=== PATIENT | male | born 1955 | race Caucasian/White ===

== ENCOUNTER 2017-06-01 13:37 | Inpatient (IN) | payer OTHER ==
[~2017-06-01] VITALS: Ht 172.7 cm; Wt 120.7 kg
[~2017-06-01 13:37] MED LIST: CHOL2000 PO; CNC30T PO; LEVO100T87 PO; PRAV20TA PO; SEVE800T10 PO
[2017-06-01 14:23] LABS: ADD SCAN DIFF NO
[2017-06-01 14:26] LABS: BASOPHILS % 0.2 % (0.0-2.0); EOSINOPHILS # 0.2 10^3/ul (0.0-0.5); EOSINOPHILS % 1.8 % (0.0-7.0); HEMATOCRIT 32.3 % (42.0-52.0); HEMOGLOBIN 10.5 g/dl (14.0-18.0); LYMPHOCYTES # 1.7 10^3/ul (0.8-2.9); LYMPHOCYTES % 17.5 % (15.0-51.0); MEAN CORPUSCULAR HEMOGLOBIN 33.2 pg (29.0-33.0); MEAN CORPUSCULAR HGB CONC 32.5 g/dl (32.0-37.0); MEAN CORPUSCULAR VOLUME 102.2 fl (82.0-101.0); MEAN PLATELET VOLUME 10.2 fl (7.4-10.4); MONOCYTE # 0.5 10^3/ul (0.3-0.9); MONOCYTES % 5.1 % (0.0-11.0); NEUTROPHIL # 7.3 10^3/ul (1.6-7.5); NEUTROPHILS % 74.5 % (39.0-77.0); PLATELET COUNT 311 10^3/UL (140-415); RED BLOOD COUNT 3.16 10^6/ul (4.70-6.10); RED CELL DISTRIBUTION WIDTH 12.9 % (11.5-14.5); WHITE BLOOD COUNT 9.8 10^3/ul (4.8-10.8)
--- NOTE | 2017-06-01 14:26 | RADRPT ---
PROCEDURE: XR Chest. CLINICAL INDICATION: Chest pain TECHNIQUE: Single portable view of the chest was obtained COMPARISON: 09/03/2015 FINDINGS: The heart is enlarged. The lungs are clear. There is no pleural effusion or pneumothorax. RPTAT: AA IMPRESSION: Mild Cardiomegaly. .Augustus Hazel MD, MD Date Time Electronically viewed and signed by .Augustus Hazel MD, on 06/01/2017 14:26 .S/
[2017-06-01 14:42] LABS: INR 1.07; PROTIME 13.9 Sec (12.2-14.2); PT RATIO 1.1
[2017-06-01 14:43] LABS: PARTIAL THROMBOPLASTIN TIME 31.1 Sec (25.0-35.0)
[2017-06-01 14:49] LABS: CALCIUM 9.2 mg/dl (8.4-10.2); CREATININE 11.81 mg/dl (0.61-1.24); POTASSIUM 4.4 mmol/L (3.5-5.1)
[2017-06-01] MEDS ORDERED: FERR210T PO (14:54)
[2017-06-01] MEDS ORDERED: FENO200 PO (14:55)
[2017-06-01] MEDS ORDERED: CINA90TA PO (14:56)
[2017-06-01] MEDS ORDERED: LEVO137T26 PO (14:57)
--- NOTE | 2017-06-01 15:00 | RADRPT ---
PROCEDURE: US left upper extremity AV fistula/graft CLINICAL INDICATION: End-stage renal disease, poorly functioning AV fistula, pain TECHNIQUE: Multiple sonographic images of the left upper extremity arteries, veins and hemodialysi s access was obtained utilizing grayscale, color-flow, compressive sonography and doppler imaging. The images were reviewed on a PACS workstation. COMPARISON: None. FINDINGS: There is a partially thrombosed left AV fistula. Velocities, and measurements were obtained: Upper outflow vein: Thrombosed Mid outflow vein: 20 cm/s Lower outflow vein: 134 cm/s Arterial anastomosis: 71 cm/s Inflow artery : 50 cm/s IMPRESSION: Thrombosis of the left AV fistula in its mid and distal aspects. RPTAT: AA .Augustus Hazel MD, Date Time Electronically viewed and signed by .Augustus Hazel MD, on 06/01/2017 14:59 .S/
--- NOTE | 2017-06-01 15:25 | ERA ---
ER Documentation Chief Complaint Date/Time DATE: 06/01/17 TIME: 15:14 Chief Complaint dialysis shunt not working, sent from dialysis center, last dialysis HPI This is a 60 this is a 61-year-old male who presents to the emergency room for evaluation of left arm pain. The patient does have a dialysis shunt in the left upper extremity. It is AV shunt and he states that he has not been working since Wednesday, 29 May. The patient states that he does get dialysis Wednesday, , Wednesday and he went to dialysis today and they were unable to access the shunt. The patient came to the ER for evaluation. He states that he did have a shunt placed by Dr. leung ROS All systems reviewed and are negative except as per history of present illness. Medications Home Meds Reported Medications Levothyroxine Sodium* (Levoxyl*) 137 Mcg Tablet, 137 MCG PO BEFORE BREAKFAST, # 30 TAB 06/01/17 Cinacalcet* (Sensipar*) 90 Mg Tablet, 90 MG PO DAILY, TAB 06/01/17 Fenofibrate* (Fenofibrate*) 200 Mg Cap, 200 MG PO DAILY, CAP 06/01/17 Ferric Citrate (Auryxia) 210 Mg Tablet, 420 MG PO TID, TAB 06/01/17 Cholecalciferol* (Vitamin D3*) 2,000 Unit Cap, 2000 UNIT PO DAILY, CAP 10/23/15 Discontinued Reported Medications Levothyroxine Sodium* (Levothyroxine Sodium*) 100 Mcg Tablet, 100 MCG PO AC BREAKFAST, TAB 10/23/15 Pravastatin Sodium (Pravachol) 20 Mg Tablet, 20 MG PO DAILY 09/17/15 Cinacalcet* (Sensipar*) 30 Mg Tab, 30 MG PO DAILY, TAB 02/26/15 Sevelamer Hcl* (Renagel*) 800 Mg Tablet, 2400 MG PO TID, TAB 12/24/14 Allergies Allergies: Coded Allergies: Penicillins (Verified Allergy, Unknown, THROAT SWELLING, 06/01/17) PMhx/Soc History of Surgery: Yes (LEFT AV FISTULA) Anesthesia Reaction: No Hx Neurological Disorder: No Hx Respiratory Disorders: No Hx Cardiac Disorders: Yes (HIGH CHOLESTEROL) Hx Psychiatric Problems: No Hx Miscellaneous Medical Probl: No Hx Alcohol Use: No Hx Substance Use: No Hx Tobacco Use: No Smoking Status: Never smoker Physical Exam Vitals Vital Signs Date Time Temp Pulse Resp B/P Pulse Ox O2 Delivery O2 Flow Rate FiO2 06/01/17 13:38 98.5 90 20 187/92 98 Physical Exam INITIAL VITAL SIGNS: Reviewed by me GENERAL: The patient is well developed and appropriate for usual state of health in no apparent distress HEENT: Pupils equal, round, and reactive to light. EOMI. There is no scleral icterus. NECK: C-spine is soft and supple, there is no meningismus. There is no cervical lymphadenopathy. LUNGS: Clear to auscultation bilaterally. There are no rales, wheezes or rhonchi. HEART: Regular rate and rhythm, no murmurs, clicks, rubs or gallops. ABDOMEN: Soft, non-tender, non-distended. There are bowel sounds in all four quadrants. No rebound or guarding. EXTREMITIES: There is no peripheral cyanosis or edema. No focal swelling or erythema. NEUROLOGICAL: The patient moves all four extremities with 5/5 strength. Cranial nerves II - XII are intact. Normal gait. Alert and oriented SKIN: Left upper extremity AV shunt erythematous, no palpable 3 HEME/LYMPHATIC: There is no evidence of excessive bruising or lymphedema. PSYCHIATRIC: The patient does not appear anxious or depressed. Result Diagram: 06/01/17 1415 06/01/17 1415 Results 24 hrs Laboratory Tests Test 06/01/17 14:15 White Blood Count 9.810^3/ul Red Blood Count 3.1610^6/ul Hemoglobin 10.5g/dl Hematocrit 32.3% Mean Corpuscular Volume 102.2fl Mean Corpuscular Hemoglobin 33.2pg Mean Corpuscular Hemoglobin Concent 32.5g/dl Red Cell Distribution Width 12.9% Platelet Count 93819^3/UL Mean Platelet Volume 10.2fl Neutrophils % 74.5% Lymphocytes % 17.5% Monocytes % 5.1% Eosinophils % 1.8% Basophils % 0.2% Nucleated Red Blood Cells % 0.0/100WBC Neutrophils # 7.310^3/ul Lymphocytes # 1.710^3/ul Monocytes # 0.510^3/ul Eosinophils # 0.210^3/ul Basophils # 0.010^3/ul Nucleated Red Blood Cells # 0.010^3/ul Prothrombin Time 13.9Sec Prothrombin Time Ratio 1.1 INR International Normalized Ratio 1.07 Activated Partial Thromboplast Time 31.1Sec Sodium Level 133mmol/L Potassium Level 4.4mmol/L Chloride Level 102mmol/L Carbon Dioxide Level 17mmol/L Anion Gap 18 Blood Urea Nitrogen 85mg/dl Creatinine 11.81mg/dl Glucose Level 102mg/dl Calcium Level 9.2mg/dl Procedures/MDM Ultrasound left upper extremity: Thrombosis of the left AV fistula in its mid and distal aspects. Chest X-ray 1V Interpreted by me: Soft Tissue: No acute abnormalities Bones: No acute abnormalities Mediastinum/Cardiac Silhouette/Lungs: [No acute abnormalities] EKG: Rate/Rhythm: [Normal Sinus Rhythm] QRS, ST, T-waves: [No changes consistent w/ acute ischemia] Impression: [No evidence of ischemia or arrhythmia] This 61-year-old male presents to the ER for evaluation of left arm pain. This patient did have an erythematous left upper extremity AV shunt. The patient underwent an ultrasound which confirmed thrombosis of the left AV shunt. I did call this patient's vascular surgeon, Dr. leung who agrees to evaluate this patient. The patient will be admitted under the care of Dr. Bard nolasco at this time. Departure Diagnosis: Primary Impression: AV shunt thrombosis Additional Impressions: Complication of vascular access for dialysis Macrocytic anemia End stage renal disease Condition: Stable CANDIDA KRAMER DO Jun 01, 2017 15:24
[2017-06-01] MEDS ORDERED: ACETAMINOPHEN 325 MG TAB PO PRN ×2 (15:30→17:00)
[2017-06-01] MEDS ORDERED: ONDANSETRON 4 MG INJ IV PRN (15:30)
--- NOTE | 2017-06-01 16:52 | HP ---
Date/Time of Note Date/Time of Note DATE: 06/01/17 TIME: 16:36 Assessment/Plan VTE Prophylaxis VTE Prophylaxis Intervention: SCD's Assessment/Plan Assessment/Plan - AV shunt thrombosis, Dr. 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 Possible of a vascular intervention tonight. Keep patient n.p.o. - Hemodialysis dependent end-stage renal disease, Dr. Gonzalez is following in nephrology consultation. - Anemia of chronic disease - Hypothyroidism, continue levothyroxine - Dyslipidemia, continue fenofibrate. Further recommendations based on clinical course. Plan of care discussed with Dr. Maldonado. HPI/ROS Admit Date/Time Admit Date/Time Hx of Present Illness The patient is 61-year-old gentleman with history of end-stage renal disease on hemodialysis 3 days a week. Patient has been on hemodialysis for last 3 years. His dialysis schedule is Wednesday and Wednesday. He presented to hemodialysis center today and was unable to be dialyzed due to malfunction of left upper extremity atrial venous shunt. Patient was referred to emergency room by his vascular surgeon Dr. Patterson. Patient underwent ultrasound of left upper extremity which revealed thrombosis of left AV shunt. Patient complains of mild stomach upset which he associates with starting new medication Auryxia. Patient denies any fever chills denies any chest pain denies any shortness of breath denies any nausea vomiting diarrhea. Patient will be admitted for further evaluation and management. ROS Point review of system is negative unless mentioned in HPI PMH/Family/Social Past Medical History Staghorn calculi, hypothyroidism, dyslipidemia, obesity. Medical History: high cholesterol, hypothyroid Past Surgical History Status post left upper extremity atrial venous fistula creation with multiple vascular interventions Family History Significant Family History: no pertinent family hx Social History Alcohol Use: none Smoking Status: Never smoker Drug Use: marijuana Exam/Review of Systems Vital Signs Vitals Vital Signs Date Time Temp Pulse Resp B/P Pulse Ox O2 Delivery O2 Flow Rate FiO2 06/01/17 16:26 73 20 166/90 99 Room Air 06/01/17 13:38 98.5 Exam Constitutional: alert, oriented Head: atraumatic, normocephalic Eyes: nl conjunctiva Neck: non-tender, supple Respiratory: normal air movement Cardiovascular: nl pulses Gastrointestinal: non-tender, soft Extremities: edema, normal pulses Neurological: nl mental status Skin: nl turgor Labs Result Diagram: 06/01/17 1415 06/01/17 1415 ADRIANA SOLIS Jun 01, 2017 16:47
[2017-06-01] MEDS ORDERED: morphine 2 MG INJ IV PRN (17:00)
[2017-06-01] MEDS ORDERED: IODIXANOL LOCM 50 ML BTL ONE (17:23)
[2017-06-01] MEDS ORDERED: IODIXANOL LOCM 100 ML BTL ONE (17:23)
[2017-06-01] MEDS ORDERED: SOD CHLORIDE 0.9% 100 ML ONE (17:23)
[2017-06-01] MEDS ORDERED: VANCOMYCIN 1.25 GM in SOD CHLORIDE 0.9% 250 ML IVPB ONE (17:30)
[2017-06-01] MEDS: ONDANSETRON 4 MG INJ IV PRN (18:28)
[2017-06-01] MEDS ORDERED: VANCOMYCIN 1 GM (PMX) 250 ML IVPB SCH ×2 (19:00→20:30)
--- NOTE | 2017-06-01 19:56 | RADRPT ---
PROCEDURE: US bilateral upper extremity venous CLINICAL INDICATION: End-stage renal disease, left brachiocephalic fistula in used - thrombosed - seen in earlier exam on 06/01/2017 TECHNIQUE: Multiple sonographic images of the bilateral upper upper extremity deep and superficial venous system was obtained utilizing grayscale, compressive sonography. Measurements were performed . The images were reviewed on a PACS workstation. COMPARISON: 06/01/2017 FINDINGS: RIGHT Right subclavian, axillary, brachial, basilic and cephalic veins are compressible. Basilic vein: Proximal: Size: 7.9 mm Mid aspect: Size: 3.4 mm Antecubital fossa region: Size: 2.4 mm Proximal forearm: Size: 1.7 mm Mid forearm: Size: 1.6 mm Wrist: Size: 1.1 mm Cephalic vein in the upper arm: Proximal: Size: 5.2 mm Mid aspect: Size: 4.8 mm Antecubital fossa region: Size: 5.3 mm Cephalic vein in the forearm: Proximal: Size: 4.1 mm Mid aspect: Size: 2.5 mm Wrist: Size: 0.9 mm LEFT Left subclavian, axillary, brachial, basilic and cephalic veins are compressible. Basilic vein: Proximal: Size: 6.9 mm Mid aspect: Size: 4.4 mm Antecubital fossa region: Size: 4.1 mm Proximal forearm: Size: 1.7 mm Mid forearm: Size: 0.9 mm Wrist: Size: 0.9 mm IMPRESSION: Vein mapping as described. RPTAT: HJES .Deep Spencer MD, Date Time Electronically viewed and signed by .Deep Spencer MD, on 06/01/2017 19:56 .S/
--- NOTE | 2017-06-01 19:57 | RADRPT ---
PROCEDURE: CTA left upper extremity CLINICAL INDICATION: Left upper extremity pain. Thrombosed dialysis graft. TECHNIQUE: 3.0 mm axial images were obtained through the left upper extremity after the IV adminis tration of 125 cc Visipaque 320 IV contrast. 3-D, coronal and sagittal reconstructions were obtaine d. DLP = 702.3 mGy-cm. CTDiVol = 3.5, 5.3, 42.3, 8.5 mGy. One or more of the following post reduction techniques were used: - Automated exposure control. - Adjustment of the mA and/or Kv according to patient's size. - Use of iterative reconstruction technique COMPARISON: Ultrasound June 01, 2017 FINDINGS: CTA left upper extremity: The visualized subclavian artery is widely patent and normal appearing. The left axillary artery de monstrates minimal calcified atherosclerosis without stenosis. The brachial artery is widely patent . A brachial-cephalic dialysis fistula emanates from the distal brachial artery at the level of the an tecubital fossa. A large amount of focal, nonocclusive thrombus is identified in the proximal aspec t of the fistula, just distal to the arterial anastomosis. The midportion of the fistula is aneurys mal, but patent. The cephalic outflow vein occludes just distal to the aneurysm. The remainder of t he cephalic vein is thrombosed in its entirety. A collateral venous outflow vein emanates from the fistula just before the occlusion and drains into the forearm, where it feeds multiple additional co llateral veins. A completely thrombosed forearm loop graft emanates from the distal brachial artery. The venous anas tomosis of the graft is to the basilic vein at the level of the antecubital fossa. Basilic outflow vein appears patent throughout the entirety of the left upper arm. However scattered nonocclusive, filling defects may reflect scattered nonocclusive thrombus in the basilic outflow vein. The axilla ry and subclavian veins are grossly unremarkable. Patent bifurcation of the brachial artery just below the antecubital fossa is identified. Patent co mmon trunk of the interosseous and ulnar arteries is identified. Patent common trunk bifurcation is observed. Minimal scattered calcified atherosclerosis is identified in the radial artery. The radial artery a ppears widely patent through the wrist. Interosseous artery is widely patent and normal appearing into the distal forearm. Scattered mild calcified atherosclerosis is identified throughout the ulnar artery. The ulnar arter y appears patent and without significant lesion through the wrist. CT left upper extremity: The osseous structures of the left upper extremity appear intact. No destructive bony lesions are o bserved. Skin thickening and mild fat stranding is identified in the soft tissues of the distal upp er arm and surrounding the elbow. IMPRESSION: Thrombosed brachial-basilic loop graft in the forearm. Thrombosed left upper arm brachial-cephalic dialysis fistula. Minimal calcified atherosclerosis scattered in the arterial vasculature of the left upper extremity. Patent radial and ulnar arteries through the wrist. Nonocclusive filling defects in the basilic vein in the left upper arm that may reflect scattered no nocclusive thrombus. Mild skin thickening and subcutaneous edema surrounding the distal upper arm and elbow. RPTAT: AA .Mason Caldwell MD, Date Time Electronically viewed and signed by .Mason Caldwell MD, on 06/01/2017 19:57 .P/
[2017-06-01 20:29] VITALS: BP 145/74; RESP 20
[2017-06-01 21:33] VITALS: Ht 172.7 cm; Wt 120.7 kg
[2017-06-02] VITALS (7 sets, daily range): BP systolic 141–160; BP diastolic 75–87; PULSE 75–86; RESP 16–20
[2017-06-02] MEDS: LEVOTHYROXINE 137 MCG TAB PO SCH (06:10)
[2017-06-02] MEDS: ONDANSETRON 4 MG INJ IV PRN (06:31)
--- NOTE | 2017-06-02 08:46 | OPR ---
Date/Time of Note Date/Time of Note DATE: 06/02/17 TIME: 08:45 Operative Report Free Text/Dictation DATE OF OPERATION: 06/02/2017 SURGEON: Joshua oTrres MD PREOPERATIVE DIAGNOSIS: ESRD POSTOPERATIVE DIAGNOSIS: same ANESTHESIA: Local BLOOD LOSS: minimal COMPLICATIONS: None. ACCESS: Right common femoral vein INDICATIONS: This is a 61 year-old male with ESRD requiring dialysis. Patient and family have been informed of the alternatives, risks, and benefits. Risks including but not limited to bleeding, thrombosis, embolization, myocardial infarction, , device malfunction, infection, pneumothorax, nephrotoxicity and patient has agreed to proceed. PROCEDURE: 1. Ultrasound guided access of right common femoral vein 2. Right common femoral vein non-tunneled hemodialysis catheter placement DESCRIPTION: The patient was in supine position in his bed. Bed was placed in slight Trendelenburg position and the groin was prepped and draped with sterile technique. The central catheter was flushed with heparin to ensure function of each port. Landmarks were identified and the skin entry site was chosen using ultrasound guidance. The skin And subcutaneous tissue were anesthetized with 1% lidocaine. The vein was then located with a needle with a 10 mL syringe using ultrasound guidance. The needle was then directed towards the vein and was entered. The needle position was secured and syringe was removed. The hub was occluded to prevent venous air embolus. The guidewire was passed easily and the needle was removed while the wire was held in place. A small incision was then made at the point of the wire entry. The dilator was placed over the wire and the tract gently dilated. The catheter was fed over the wire, ensuring the wire exited from the port before advancing the catheter. The catheter was inserted to the desired depth and the wire removed. Each port was aspirated to ensure adequate blood flow and then flushed with heparinized saline solution. The catheter was secured in place with a 2-0 nylon suture and a sterile dressing was applied. The patient tolerated the procedure well and was in stable condition. All instrument, sponge and needle counts were correct 2. JOSHUA TORRES MD Jun 02, 2017 08:46
[2017-06-02] MEDS ORDERED: SOD CHLORIDE 0.9% 500 ML ONE ×2 (08:50→17:25)
[2017-06-02] MEDS ORDERED: HEPARIN 1000 UNITS/ML 10 ML INJ ONE ×2 (08:50→17:25)
--- NOTE | 2017-06-02 08:54 | CONS ---
DATE OF ADMISSION: 06/01/2017 DATE OF CONSULTATION: HISTORY OF PRESENT ILLNESS: The patient is a 61-year-old gentleman with history of end-stage renal disease, who presented to [facility] with left upper extremity swelling, redness, discomfort, and clotted fistula. The patient mentioned that over the past few days had identified the patient having redness and swelling, and today when he went for his dialysis session, it was identified that the patient's fistula was not able to be cannulated and seemed to be thrombosed. The patient has been on dialysis over the past 3 years and has had previous left upper extremity loop of AV graft, which is nonfunctional. Further, the patient mentioned that he did have some chills, however, no fever was reported. Also, the patient has been noncompliant with his past surgery surveillance for his fistula, and we have not seen him in the office for some time now. The patient mentioned that he felt that his fistula was doing okay and no need to follow up. At the moment he denies shortness of breath, chest pain, nausea, vomiting, fever, or chills. Denies upper extremity claudication or rest pain. PAST MEDICAL HISTORY: Entails hypothyroidism, dyslipidemia, obesity, anemia of chronic disease, hypercholesterolemia, staghorn calculi, end-stage renal disease on dialysis Wednesday, , Wednesday. PAST SURGICAL HISTORY: Multiple left upper extremity AV fistula creations, previous Perm catheter placement. FAMILY HISTORY: Positive for hypertension and diabetes. SOCIAL HISTORY: Previous smoker, does use marijuana. Denies current illicit drug use or alcohol abuse. PHYSICAL EXAMINATION: GENERAL: Alert and oriented times 3, no apparent distress. HEENT: Normocephalic, atraumatic. PERRLA. EOMI. Mucosa moist. NECK: Supple. No carotid bruit. LUNGS: Clear to auscultation bilaterally. No crackles. HEART: S1, S2 present. No murmurs. ABDOMEN: Soft, nontender, nondistended. Bowel sounds positive. Truncal obesity. EXTREMITIES: Lower extremity palpable femoral pulse, nonpalpable pedal pulse. Motor and sensory intact. Capillary refill 2 to 3 seconds. No surgical scars. Left upper extremity palpable brachial pulse. Motor and sensory intact. Capillary refill 2 to 3 seconds. Previous surgical scars are well healed. Fistula with no bruit and thrill present. There is an area of erythema and swelling in the left upper arm that extends from the area of previous antecubital incision to the mid aspect of the upper arm. Positive induration. ASSESSMENT AND PLAN: End-stage renal disease: It seems the patient's left upper extremity has currently a cellulitis with possible graft infection. The patient did have a composite arteriovenous fistula creation where the first portion of his arteriovenous fistula is a V-graft that is attached to the upper cephalic vein as he had a previous fibrosed cephalic vein in the elbow area. There is concern this arteriovenous graft is infected, in which case will require to explant this graft. Would recommend to obtain a CT angiogram of the left upper extremity to further delineate the findings of a possible graft infection and possible excision of this graft may be required. Recommend intravenous antibiotics for now. Would recommend not to use the right upper extremity antecubital segment as the patient will require possible new creation of the fistula. Will plan to obtain bilateral upper extremity vein mapping. Optimize vascular status (add nutrition exercise for control of the platelets). Discussed findings, plans, and management of the patient. He understands. Thank you for allowing us to participate in the care of your patient. Please call with any questions. Dictated By: Joshua Patterson MD /[email or web address]/pipec /Document#: [id number]
[2017-06-02] MEDS: FENOFIBRATE 145 MG TAB PO SCH (09:02)
[2017-06-02] MEDS: CINACALCET 30 MG TAB PO SCH (09:02)
[2017-06-02] MEDS: FAMOTIDINE 20 MG INJ IV SCH (09:02)
[2017-06-02] MEDS: CHOLECALCIFEROL 2,000 UNIT CAP PO SCH (09:02)
[2017-06-02 12:40] LABS: ADD SCAN DIFF NO
[2017-06-02 12:44] LABS: BASOPHILS % 0.4 % (0.0-2.0); EOSINOPHILS # 0.1 10^3/ul (0.0-0.5); EOSINOPHILS % 1.3 % (0.0-7.0); HEMATOCRIT 31.5 % (42.0-52.0); HEMOGLOBIN 10.1 g/dl (14.0-18.0); LYMPHOCYTES # 1.1 10^3/ul (0.8-2.9); LYMPHOCYTES % 13.3 % (15.0-51.0); MEAN CORPUSCULAR HEMOGLOBIN 33.1 pg (29.0-33.0); MEAN CORPUSCULAR HGB CONC 32.1 g/dl (32.0-37.0); MEAN CORPUSCULAR VOLUME 103.3 fl (82.0-101.0); MEAN PLATELET VOLUME 10.8 fl (7.4-10.4); MONOCYTE # 0.4 10^3/ul (0.3-0.9); MONOCYTES % 4.3 % (0.0-11.0); NEUTROPHIL # 6.7 10^3/ul (1.6-7.5); PLATELET COUNT 318 10^3/UL (140-415); RED BLOOD COUNT 3.05 10^6/ul (4.70-6.10); RED CELL DISTRIBUTION WIDTH 12.7 % (11.5-14.5); WHITE BLOOD COUNT 8.4 10^3/ul (4.8-10.8)
[2017-06-02 13:10] LABS: CALCIUM 9.2 mg/dl (8.4-10.2); CREATININE 11.61 mg/dl (0.61-1.24); POTASSIUM 4.7 mmol/L (3.5-5.1)
--- NOTE | 2017-06-02 14:42 | PN ---
Date/Time of Note Date/Time of Note DATE: 06/02/17 TIME: 14:38 Assessment/Plan VTE Prophylaxis VTE Prophylaxis Intervention: SCD's Lines/Catheters IV [facility]ter [facility] (from [facility]): Peripheral IV Assessment/Plan Chief Complaint/Hosp Course Patient looks comfortable status post right femoral Dioni catheter last night , pending hemodialysis tomorrow today. Assessment/Plan - Left upper extremity cellulitis with possible AV graft infection, continue broad-spectrum antibiotics. Dr. Cantu is following an infection disease consultation. - AV shunt thrombosis, Dr. 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 - Hemodialysis dependent end-stage renal disease, Dr. Gonzalez is following in nephrology consultation. - Anemia of chronic disease - Hypothyroidism, continue levothyroxine - Dyslipidemia, continue fenofibrate. - Obesity Further recommendations based on clinical course. Plan of care discussed with Dr. Maldonado. Problems: Exam/Review of Systems Vital Signs Vitals Vital Signs Date Time Temp Pulse Resp B/P Pulse Ox O2 Delivery O2 Flow Rate FiO2 06/02/17 07:31 97.6 75 16 141/76 97 06/01/17 19:31 Room Air Intake and Output 06/01/17 06/01/17 06/02/17 15:00 23:00 07:00 Intake Total 250 ml 250 ml Output Total 550 ml Balance 250 ml -300 ml Exam Constitutional: alert, oriented Head: normocephalic Neck: supple Respiratory: normal air movement Cardiovascular: nl pulses Gastrointestinal: non-tender, soft Musculoskeletal: nl extremities to inspection Extremities: normal pulses Neurological: nl mental status Skin: other (Left upper extremities erythema) Results Result Diagram: 06/02/17 1150 06/02/17 1150 Results 24 hrs Laboratory Tests Test 06/02/17 11:50 White Blood Count 8.4 Red Blood Count 3.05 L Hemoglobin 10.1 L Hematocrit 31.5 L Mean Corpuscular Volume 103.3 H Mean Corpuscular Hemoglobin 33.1 H Mean Corpuscular Hemoglobin Concent 32.1 Red Cell Distribution Width 12.7 Platelet Count 318 Mean Platelet Volume 10.8 H Neutrophils % 80.0 H Lymphocytes % 13.3 L Monocytes % 4.3 Eosinophils % 1.3 Basophils % 0.4 Nucleated Red Blood Cells % 0.0 Neutrophils # 6.7 Lymphocytes # 1.1 Monocytes # 0.4 Eosinophils # 0.1 Basophils # 0.0 Nucleated Red Blood Cells # 0.0 Sodium Level 135 Potassium Level 4.7 Chloride Level 104 Carbon Dioxide Level 16 L Anion Gap 20 H Blood Urea Nitrogen 85 H Creatinine 11.61 H Glucose Level 102 Calcium Level 9.2 Medications Medications Current Medications Cholecalciferol (Vitamin D) 2,000 unit DAILY PO Last administered on 06/02/17 09:02; Admin Dose 2,000 UNIT; Start 06/02/17 at 09:00 Cinacalcet (Sensipar) 90 mg DAILY PO Last administered on 06/02/17 09:02; Admin Dose 90 MG; Start 06/02/17 at 09:00 Fenofibrate (Tricor) 145 mg DAILY PO Last administered on 06/02/17 09:02; Admin Dose 145 MG; Start 06/02/17 at 09:00 Ondansetron HCl (Zofran Inj) 4 mg Q6H PRN IV NAUSEA AND/OR VOMITING Last administered on 06/02/17 06:31; Admin Dose 4 MG; Start 06/01/17 at 17:00 Acetaminophen (Tylenol Tab) 650 mg Q6H PRN PO PAIN LEVEL 1-3 OR FEVER; Start at 17:00 Morphine Sulfate (morphine) 2 mg Q4H PRN IV SEVERE PAIN LEVEL 7-10; Start 06/01 at 17:00 Famotidine (Pepcid Iv) 20 mg DAILY IV Last administered on 06/02/17 09:02; Admin Dose 20 MG; Start 06/02/17 at 09:00 ADRIANA SOLIS Jun 02, 2017 14:42
[2017-06-02] MEDS ORDERED: LIDOCAINE 1% (MDV) 20 ML INJ ONE (17:44)
--- NOTE | 2017-06-02 18:09 | CONS ---
Date/Time of Note Date/Time of Note DATE: 06/02/17 TIME: 18:09 Consultation Date/Type/Reason Admit Date/Time Type of Consultation: ID Past Medical History Medical History: high cholesterol, hypothyroid Social History Alcohol Use: none Smoking Status: Current every day smoker Drug Use: marijuana Exam/Review of Systems Vital Signs Vitals Vital Signs Date Time Temp Pulse Resp B/P Pulse Ox O2 Delivery O2 Flow Rate FiO2 06/02/17 15:40 85 06/02/17 15:40 16 06/02/17 07:31 97.6 141/76 97 06/01/17 19:31 Room Air Intake and Output 06/01/17 06/01/17 06/02/17 15:00 23:00 07:00 Intake Total 250 ml 250 ml Output Total 550 ml Balance 250 ml -300 ml Results Result Diagram: 06/02/17 1150 06/02/17 1150 Results 24 hrs Laboratory Tests Test 06/02/17 11:50 White Blood Count 8.4 Red Blood Count 3.05 L Hemoglobin 10.1 L Hematocrit 31.5 L Mean Corpuscular Volume 103.3 H Mean Corpuscular Hemoglobin 33.1 H Mean Corpuscular Hemoglobin Concent 32.1 Red Cell Distribution Width 12.7 Platelet Count 318 Mean Platelet Volume 10.8 H Neutrophils % 80.0 H Lymphocytes % 13.3 L Monocytes % 4.3 Eosinophils % 1.3 Basophils % 0.4 Nucleated Red Blood Cells % 0.0 Neutrophils # 6.7 Lymphocytes # 1.1 Monocytes # 0.4 Eosinophils # 0.1 Basophils # 0.0 Nucleated Red Blood Cells # 0.0 Sodium Level 135 Potassium Level 4.7 Chloride Level 104 Carbon Dioxide Level 16 L Anion Gap 20 H Blood Urea Nitrogen 85 H Creatinine 11.61 H Glucose Level 102 Calcium Level 9.2 Medications Medications Current Medications Cholecalciferol (Vitamin D) 2,000 unit DAILY PO Last administered on 06/02/17 09:02; Admin Dose 2,000 UNIT; Start 06/02/17 at 09:00 Cinacalcet (Sensipar) 90 mg DAILY PO Last administered on 06/02/17 09:02; Admin Dose 90 MG; Start 06/02/17 at 09:00 Fenofibrate (Tricor) 145 mg DAILY PO Last administered on 06/02/17 09:02; Admin Dose 145 MG; Start 06/02/17 at 09:00 Ondansetron HCl (Zofran Inj) 4 mg Q6H PRN IV NAUSEA AND/OR VOMITING Last administered on 06/02/17 06:31; Admin Dose 4 MG; Start 06/01/17 at 17:00 Acetaminophen (Tylenol Tab) 650 mg Q6H PRN PO PAIN LEVEL 1-3 OR FEVER; Start at 17:00 Morphine Sulfate (morphine) 2 mg Q4H PRN IV SEVERE PAIN LEVEL 7-10; Start 06/01 at 17:00 Famotidine (Pepcid Iv) 20 mg DAILY IV Last administered on 06/02/17 09:02; Admin Dose 20 MG; Start 06/02/17 at 09:00 SILVIA CRISTOBAL MD Jun 02, 2017 18:09
--- NOTE | 2017-06-02 18:25 | OPR ---
Date/Time of Note Date/Time of Note DATE: 06/02/17 TIME: 18:23 Operative Report Free Text/Dictation DATE OF OPERATION: 05/13/2017 PREOPERATIVE DIAGNOSIS: End-stage renal disease. POSTOPERATIVE DIAGNOSIS: End-stage renal disease. SURGEON: Joshua Torres MD ANESTHESIA: Local. COMPLICATIONS: None. ACCESS: Right common femoral vein. INDICATIONS: This is a 61-year-old gentleman with renal failure requiring dialysis had malfunction of his right CFV Dioni catheter . The patient and family had been informed of alternatives, risks, and benefits. Risks including but not limited to bleeding, thrombosis, embolization, myocardial infarction, , stroke, device malfunction, infection and nephrotoxicity, and the patient has agreed to proceed. PROCEDURE: Right common femoral vein tunneled hemodialysis catheter placement. DESCRIPTION OF PROCEDURE: The patient was brought into the Angio room table and placed in supine position. The bed was placed in slight Trendelenburg position and the groin was prepped and draped in the usual standard sterile fashion. The central dialysis catheter was then flushed with heparinized saline solution to ensure function of each port. The skin and subcutaneous tissue were anesthetized with 1% lidocaine. At this point, using an Amplatz Stiff wire, the temporary catheter was removed over the wire. At this point, a tunneled tract was created by creating a 2 mm incision 6 cm away from groin access of the previous Dioni catheter. At this point, using the tunneler, the permanent hemodialysis catheter was tunneled towards the groin access wire. Once this was established and tunneled appropriately, we went ahead and placed our dilator and dilated our tract over the wire gently. At this point, the catheter was then fed over the wire through a peel-away sheath ensuring that the wire exited from the ports and the peel-away sheath. At this point, the catheter was inserted to the desired depth and the puncture site was closed with 3-0 Vicryl suture and Dermabond was applied. The tunneled dialysis catheter was secured with a 3-0 nylon suture at its flush port site. Then, 3 mL of heparin were placed in each port and an abdominal x-ray was obtained to ensure the placement of the catheter, which was adequate. The patient tolerated the procedure well and was taken to the postanesthesia care unit in stable condition. All instrument, sponge and needle counts were correct x2. JOSHUA TORRES MD Jun 02, 2017 18:25
--- NOTE | 2017-06-02 20:44 | RADRPT ---
PROCEDURE: XR Abdomen. CLINICAL INDICATION: Line placement. TECHNIQUE: Supine AP views of the abdomen. COMPARISON: None. FINDINGS: A right femoral venous catheter terminates at the inferior cavoatrial junction. There are no dilate d loops of small bowel to suggest a bowel obstruction. Gas and stool are seen within nondilated lar ge bowel. There is excreted intravenous contrast in the urinary bladder. IMPRESSION: 1. Right femoral venous catheter tip at the inferior cavoatrial junction. 2. Nonobstructive bowel gas pattern. RPTAT: HTAR .Yehuda Philippe MD, MD Date Time Electronically viewed and signed by .Yehuda Philippe MD, on 06/02/2017 20:44 .R/
[2017-06-03] VITALS (26 sets, daily range): BP systolic 115–178; BP diastolic 60–89; PULSE 68–80; RESP 15–23
[2017-06-03] MEDS: LEVOTHYROXINE 137 MCG TAB PO SCH (06:00)
[2017-06-03] MEDS: FAMOTIDINE 20 MG INJ IV SCH (08:50)
[2017-06-03] MEDS: CINACALCET 30 MG TAB PO SCH (08:50)
[2017-06-03] MEDS: CHOLECALCIFEROL 2,000 UNIT CAP PO SCH (08:50)
[2017-06-03] MEDS: FENOFIBRATE 145 MG TAB PO SCH (08:50)
--- NOTE | 2017-06-03 12:21 | CONS ---
Date/Time of Note Date/Time of Note DATE: 06/03/17 TIME: 12:21 Assessment/Plan Assessment/Plan Chief Complaint/Hosp Course No events overnight. Patient is alert lying comfortably in bed. No fevers. Temperature 98.8 pulse 79 respirations 22 blood pressure 125/73 Microbiology: Cultures had been negative Physical examination: Obese well-developed elderly man who is alert in no distress. Head atraumatic normocephalic. Sclerae nonicteric. Neck is supple, trachea midline. Chest rise symmetrical, breath sounds clear. Heart: S1-S2. Abdomen soft, bowel tones present. Extremities without cyanosis: Left upper extremity with erythema and swelling at AV graft site Assessment: 1. Left upper extremity cellulitis, possibly infected AV graft 2. End-stage renal disease, hemodialysis dependent 3. Morbid obesity 4. Right femoral Dioni catheter Plan: Patient was given a dose of vancomycin, he is being seen by vascular team , we will continue him on IV vancomycin Discussed with patient and staff Problems: Consultation Date/Type/Reason Admit Date/Time Jun 01, 2017 at 15:13 Initial Consult Date Type of Consultation: ID Exam/Review of Systems Vital Signs Vitals Vital Signs Date Time Temp Pulse Resp B/P Pulse Ox O2 Delivery O2 Flow Rate FiO2 06/03/17 08:01 98.8 79 22 125/73 97 06/02/17 18:19 Room Air Intake and Output 06/02/17 06/02/17 06/03/17 15:00 23:00 07:00 Intake Total 1080 ml 980 ml Balance 1080 ml 980 ml Results Result Diagram: 06/02/17 1150 06/02/17 1150 Medications Medications Current Medications Cholecalciferol (Vitamin D) 2,000 unit DAILY PO Last administered on 06/02/17 09:02; Admin Dose 2,000 UNIT; Start 06/02/17 at 09:00 Cinacalcet (Sensipar) 90 mg DAILY PO Last administered on 06/02/17 09:02; Admin Dose 90 MG; Start 06/02/17 at 09:00 Fenofibrate (Tricor) 145 mg DAILY PO Last administered on 06/02/17 09:02; Admin Dose 145 MG; Start 06/02/17 at 09:00 Ondansetron HCl (Zofran Inj) 4 mg Q6H PRN IV NAUSEA AND/OR VOMITING Last administered on 06/02/17 06:31; Admin Dose 4 MG; Start 06/01/17 at 17:00 Acetaminophen (Tylenol Tab) 650 mg Q6H PRN PO PAIN LEVEL 1-3 OR FEVER; Start at 17:00 Morphine Sulfate (morphine) 2 mg Q4H PRN IV SEVERE PAIN LEVEL 7-10; Start 06/01 at 17:00 Famotidine (Pepcid Iv) 20 mg DAILY IV Last administered on 06/03/17 08:50; Admin Dose 20 MG; Start 06/02/17 at 09:00 EARLE POLLACK NP Jun 03, 2017 12:21
[2017-06-03] MEDS ORDERED: VANCOMYCIN IV PER PHARMACY XX SCH (12:30)
[2017-06-03] MEDS ORDERED: VANCOMYCIN 2 GM in SOD CHLORIDE 0.9% 500 ML IVPB SCH (13:30)
--- NOTE | 2017-06-03 15:10 | RADRPT ---
PROCEDURE: US left lower extremity veins. CLINICAL INDICATION: Left leg pain and swelling. TECHNIQUE: Multiple longitudinal and transverse images of the left lower extremity veins were obta ined with worley scale and color Doppler imaging. The common femoral vein, femoral vein, and popliteal vein were evaluated. 2D grayscale measurements with compression sonography, pulsed Doppler, color D oppler, and pulsed Doppler with augmentation. COMPARISON: No prior studies are available for comparison. FINDINGS: The left common femoral, femoral and popliteal veins are normally compressible throughout. Color fl ow demonstrates normal filling of the vessels. Normal waveforms are visualized and there is normal response to augmentation. IMPRESSION: 1. No evidence of deep vein thrombosis involving the left lower extremity. RPTAT: QQ .Javad Carvalho MD, MD Date Time Electronically viewed and signed by .Javad Carvalho MD, on 06/03/2017 15:10 .R/
[2017-06-03] MEDS ORDERED: GELATIN SIZE 100 SPONGE ONE (16:14)
[2017-06-03] MEDS ORDERED: THROMBIN 5000 UNIT VIAL ONE (16:14)
[2017-06-03] MEDS ORDERED: LIDOCAINE 1% (MPF) 30 ML INJ ONE (16:14)
[2017-06-03] MEDS ORDERED: HEPARIN 1000 UNITS/ML 10 ML INJ ONE ×2 (16:15→17:47)
[2017-06-03] MEDS ORDERED: ROPIVACAINE 0.5 % 30 ML VIAL ONE (16:27)
[2017-06-03] MEDS ORDERED: LIDOCAINE 1% (MDV) 20 ML INJ ONE (16:28)
[2017-06-03] MEDS ORDERED: FENTAnyl 50 MCG/ML VIAL ONE (16:32)
--- NOTE | 2017-06-03 16:32 | HPN ---
Date/Time of Note Date/Time of Note DATE: 06/03/17 TIME: 16:32 Interval H&P Admission Note Pt. seen H&P reviewed: No system changes RAMIRO TORRES MD Jun 03, 2017 16:32
[2017-06-03 16:35] LABS: ADD SCAN DIFF NO
[2017-06-03 16:38] LABS: BASOPHILS % 0.2 % (0.0-2.0); EOSINOPHILS # 0.1 10^3/ul (0.0-0.5); HEMATOCRIT 31.7 % (42.0-52.0); HEMOGLOBIN 10.6 g/dl (14.0-18.0); LYMPHOCYTES # 1.2 10^3/ul (0.8-2.9); LYMPHOCYTES % 10.1 % (15.0-51.0); MEAN CORPUSCULAR HGB CONC 33.4 g/dl (32.0-37.0); MEAN CORPUSCULAR VOLUME 101.6 fl (82.0-101.0); MONOCYTE # 0.6 10^3/ul (0.3-0.9); MONOCYTES % 5.5 % (0.0-11.0); NEUTROPHIL # 9.5 10^3/ul (1.6-7.5); NEUTROPHILS % 82.6 % (39.0-77.0); PLATELET COUNT 281 10^3/UL (140-415); RED BLOOD COUNT 3.12 10^6/ul (4.70-6.10); RED CELL DISTRIBUTION WIDTH 12.6 % (11.5-14.5); WHITE BLOOD COUNT 11.5 10^3/ul (4.8-10.8)
[2017-06-03 16:47] LABS: CALCIUM 9.6 mg/dl (8.4-10.2); CREATININE 7.6 mg/dl (0.61-1.24); POTASSIUM 3.7 mmol/L (3.5-5.1)
[2017-06-03] MEDS ORDERED: THROMBIN 5000 UNIT VIAL TOP ONE (17:02)
[2017-06-03] MEDS ORDERED: ONDANSETRON 4 MG INJ ONE (17:03)
[2017-06-03] MEDS ORDERED: PROPOFOL 20 ML ONE (17:19)
--- NOTE | 2017-06-03 17:19 | PN ---
Date/Time of Note Date/Time of Note DATE: 06/03/17 TIME: 13:29 Assessment/Plan Lines/Catheters IV [facility] Type (from [facility] Saline Lock Urinary Cath still in place: No Assessment/Plan Assessment/Plan - AV shunt thrombosis, Dr. 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 Possible of a vascular intervention tonight. Keep patient n.p.o. - sp right groin HD cath. - LUE AV graft infection - ID following. - -Venous Doppler - r/o DVT- fu - Hemodialysis dependent end-stage renal disease, Dr. Gonzalez is following in nephrology consultation. - Anemia of chronic disease - Hypothyroidism, continue levothyroxine - Dyslipidemia, continue fenofibrate. Further recommendations based on clinical course. Plan of care discussed with Dr. Maldonado. Subjective 24 Hr Interval Summary Free Text/Dictation alert. sp right femoral HD cath. Had HD this morning- dw staff. No new issues reported. Respiratory: no complaints Cardiovascular: no complaints Gastrointestinal: no complaints Genitourinary: no complaints Musculoskeletal: no complaints Skin: erythema (LUE) Exam/Review of Systems Vital Signs Vitals Vital Signs Date Time Temp Pulse Resp B/P Pulse Ox O2 Delivery O2 Flow Rate FiO2 06/03/17 08:01 98.8 79 22 125/73 97 06/02/17 18:19 Room Air Intake and Output 06/02/17 06/02/17 06/03/17 15:00 23:00 07:00 Intake Total 1080 ml 980 ml Balance 1080 ml 980 ml Exam Constitutional: alert, oriented, well developed Respiratory: clear to auscultation, normal air movement Cardiovascular: nl pulses, regular rate and rhythm Gastrointestinal: non-tender, soft Extremities: edema, other (LUE- infected graft) Neurological: nl mental status, nl speech Skin: other Results Result Diagram: 06/02/17 1150 06/02/17 1150 Medications Medications Current Medications Cholecalciferol (Vitamin D) 2,000 unit DAILY PO Last administered on 06/02/17 09:02; Admin Dose 2,000 UNIT; Start 06/02/17 at 09:00 Cinacalcet (Sensipar) 90 mg DAILY PO Last administered on 06/02/17 09:02; Admin Dose 90 MG; Start 06/02/17 at 09:00 Fenofibrate (Tricor) 145 mg DAILY PO Last administered on 06/02/17 09:02; Admin Dose 145 MG; Start 06/02/17 at 09:00 Ondansetron HCl (Zofran Inj) 4 mg Q6H PRN IV NAUSEA AND/OR VOMITING Last administered on 06/02/17 06:31; Admin Dose 4 MG; Start 06/01/17 at 17:00 Acetaminophen (Tylenol Tab) 650 mg Q6H PRN PO PAIN LEVEL 1-3 OR FEVER; Start at 17:00 Morphine Sulfate (morphine) 2 mg Q4H PRN IV SEVERE PAIN LEVEL 7-10; Start 06/01 at 17:00 Famotidine 20 mg 20 mg DAILY IV Last administered on 06/03/17 08:50; Admin Dose 20 MG; Start 06/02/17 at 09:00 Vancomycin HCl/ Sodium Chloride (Vancocin/NS) 500 ml @ 125 mls/hr ONCE IVPB ; Start 06/03/17 at 13:30; Stop 06/03/17 at 22:00 JAYLAN TORIBIO Jun 03, 2017 17:17
[2017-06-03] MEDS ORDERED: FENTAnyl 50 MCG/ML VIAL IV PRN (19:00)
[2017-06-03] MEDS ORDERED: DIPHENHYDRAMINE 50 MG INJ IV PRN (19:00)
[2017-06-04] VITALS: BP 118/63; PULSE 77; RESP 18
[2017-06-04 02:00] VITALS: BP 122/66; RESP 18
[2017-06-04] MEDS: LEVOTHYROXINE 137 MCG TAB PO SCH (06:31)
[2017-06-04 07:33] VITALS: BP 145/76; RESP 20
[2017-06-04] MEDS: FAMOTIDINE 20 MG INJ IV SCH (09:04)
[2017-06-04] MEDS: FENOFIBRATE 145 MG TAB PO SCH (09:05)
[2017-06-04] MEDS: CINACALCET 30 MG TAB PO SCH (09:05)
[2017-06-04] MEDS: CHOLECALCIFEROL 2,000 UNIT CAP PO SCH (09:05)
[2017-06-04] MEDS ORDERED: HYDROmorphONE 1 MG/ML SYG IV STA (10:22)
[2017-06-04] MEDS ORDERED: HYDROmorphONE 1 MG/ML SYG IV PRN (10:30)
[2017-06-04] MEDS: ONDANSETRON 4 MG INJ IV PRN (13:14)
[2017-06-04 14:02] VITALS: BP 136/82; RESP 20
--- NOTE | 2017-06-04 14:21 | CONS ---
Date/Time of Note Date/Time of Note DATE: 06/04/17 TIME: 14:20 Assessment/Plan Assessment/Plan Chief Complaint/Hosp Course No events overnight. Patient is alert lying comfortably in bed. No fevers. Microbiology: Blood culture on admission growing staph species Physical examination: Obese well-developed elderly man who is alert in no distress. Head atraumatic normocephalic. Sclerae nonicteric. Neck is supple, trachea midline. Chest rise symmetrical, breath sounds clear. Heart: S1-S2. Abdomen soft, bowel tones present. Extremities without cyanosis: Left upper extremity with erythema and swelling at AV graft site Assessment: 1. Left upper extremity cellulitis, possibly infected AV graft 2. End-stage renal disease, hemodialysis dependent 3. Morbid obesity 4. Right femoral Dioni catheter 5. Staph bacteremia Plan: Stable, continue present care continue vancomycin, repeat blood cultures, follow recommendations of vascular team Discussed with patient and staff Problems: Consultation Date/Type/Reason Admit Date/Time Jun 01, 2017 at 15:13 Type of Consultation: ID Exam/Review of Systems Vital Signs Vitals Vital Signs Date Time Temp Pulse Resp B/P Pulse Ox O2 Delivery O2 Flow Rate FiO2 06/04/17 14:02 97.6 85 20 136/82 96 06/04/17 00:00 Room Air Intake and Output 06/03/17 06/03/17 06/04/17 15:00 23:00 07:00 Intake Total 500 ml 600 ml Output Total 30 ml 320 ml Balance 470 ml 280 ml Results Result Diagram: 06/03/17 1630 06/03/17 1630 Results 24 hrs Laboratory Tests Test 06/03/17 16:30 White Blood Count 11.5 #H Red Blood Count 3.12 L Hemoglobin 10.6 L Hematocrit 31.7 L Mean Corpuscular Volume 101.6 H Mean Corpuscular Hemoglobin 34.0 H Mean Corpuscular Hemoglobin Concent 33.4 Red Cell Distribution Width 12.6 Platelet Count 281 Mean Platelet Volume 10.0 Neutrophils % 82.6 H Lymphocytes % 10.1 L Monocytes % 5.5 Eosinophils % 1.0 Basophils % 0.2 Nucleated Red Blood Cells % 0.0 Neutrophils # 9.5 H Lymphocytes # 1.2 Monocytes # 0.6 Eosinophils # 0.1 Basophils # 0.0 Nucleated Red Blood Cells # 0.0 Sodium Level 137 Potassium Level 3.7 Chloride Level 99 Carbon Dioxide Level 26 # Anion Gap 16 Blood Urea Nitrogen 42 #H Creatinine 7.60 #H Glucose Level 111 Calcium Level 9.6 Medications Medications Current Medications Cholecalciferol (Vitamin D) 2,000 unit DAILY PO Last administered on 06/04/17 09:05; Admin Dose 2,000 UNIT; Start 06/02/17 at 09:00 Cinacalcet (Sensipar) 90 mg DAILY PO Last administered on 06/04/17 09:05; Admin Dose 90 MG; Start 06/02/17 at 09:00 Fenofibrate (Tricor) 145 mg DAILY PO Last administered on 06/04/17 09:05; Admin Dose 145 MG; Start 06/02/17 at 09:00 Ondansetron HCl (Zofran Inj) 4 mg Q6H PRN IV NAUSEA AND/OR VOMITING Last administered on 06/04/17 13:14; Admin Dose 4 MG; Start 06/01/17 at 17:00 Acetaminophen (Tylenol Tab) 650 mg Q6H PRN PO PAIN LEVEL 1-3 OR FEVER; Start at 17:00 Famotidine (Pepcid Iv) 20 mg DAILY IV Last administered on 06/04/17 09:04; Admin Dose 20 MG; Start 06/02/17 at 09:00 Hydromorphone HCl (Dilaudid) 1 mg Q3H PRN IV PAIN; Start 06/04/17 at 10:30 EARLE POLLACK NP Jun 04, 2017 14:21
--- NOTE | 2017-06-04 14:29 | PN ---
Date/Time of Note Date/Time of Note DATE: 06/04/17 TIME: 14:25 Assessment/Plan VTE Prophylaxis VTE Prophylaxis Intervention: SCD's Lines/Catheters IV Catheter Type (from [facility]): Saline Lock Urinary Cath still in place: No Assessment/Plan Chief Complaint/Hosp Course Patient remains hemodynamically stable, afebrile complaints of left upper extremity pain. Assessment/Plan - Left upper extremity cellulitis with possible AV graft infection, continue broad-spectrum antibiotics. Dr. Cantu is following an infection disease consultation. - AV shunt thrombosis, Dr. 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 - Hemodialysis dependent end-stage renal disease, Dr. Gonzalez is following in nephrology consultation. - Anemia of chronic disease - Hypothyroidism, continue levothyroxine - Dyslipidemia, continue fenofibrate. - Obesity Further recommendations based on clinical course. Plan of care discussed with Dr. Maldonado. Problems: Exam/Review of Systems Vital Signs Vitals Vital Signs Date Time Temp Pulse Resp B/P Pulse Ox O2 Delivery O2 Flow Rate FiO2 06/04/17 14:02 97.6 85 20 136/82 96 06/04/17 00:00 Room Air Intake and Output 06/03/17 06/03/17 06/04/17 15:00 23:00 07:00 Intake Total 500 ml 600 ml Output Total 30 ml 320 ml Balance 470 ml 280 ml Exam Constitutional: alert, oriented Head: normocephalic Neck: supple Respiratory: normal air movement Cardiovascular: nl pulses Gastrointestinal: non-tender, soft Musculoskeletal: nl extremities to inspection Extremities: normal pulses Neurological: nl mental status Skin: other (Left upper extremities erythema) Results Result Diagram: 06/03/17 1630 06/03/17 1630 Results 24 hrs Laboratory Tests Test 06/03/17 16:30 White Blood Count 11.5 #H Red Blood Count 3.12 L Hemoglobin 10.6 L Hematocrit 31.7 L Mean Corpuscular Volume 101.6 H Mean Corpuscular Hemoglobin 34.0 H Mean Corpuscular Hemoglobin Concent 33.4 Red Cell Distribution Width 12.6 Platelet Count 281 Mean Platelet Volume 10.0 Neutrophils % 82.6 H Lymphocytes % 10.1 L Monocytes % 5.5 Eosinophils % 1.0 Basophils % 0.2 Nucleated Red Blood Cells % 0.0 Neutrophils # 9.5 H Lymphocytes # 1.2 Monocytes # 0.6 Eosinophils # 0.1 Basophils # 0.0 Nucleated Red Blood Cells # 0.0 Sodium Level 137 Potassium Level 3.7 Chloride Level 99 Carbon Dioxide Level 26 # Anion Gap 16 Blood Urea Nitrogen 42 #H Creatinine 7.60 #H Glucose Level 111 Calcium Level 9.6 Medications Medications Current Medications Cholecalciferol (Vitamin D) 2,000 unit DAILY PO Last administered on 06/04/17 09:05; Admin Dose 2,000 UNIT; Start 06/02/17 at 09:00 Cinacalcet (Sensipar) 90 mg DAILY PO Last administered on 06/04/17 09:05; Admin Dose 90 MG; Start 06/02/17 at 09:00 Fenofibrate (Tricor) 145 mg DAILY PO Last administered on 06/04/17 09:05; Admin Dose 145 MG; Start 06/02/17 at 09:00 Ondansetron HCl (Zofran Inj) 4 mg Q6H PRN IV NAUSEA AND/OR VOMITING Last administered on 06/04/17 13:14; Admin Dose 4 MG; Start 06/01/17 at 17:00 Acetaminophen (Tylenol Tab) 650 mg Q6H PRN PO PAIN LEVEL 1-3 OR FEVER; Start at 17:00 Famotidine (Pepcid Iv) 20 mg DAILY IV Last administered on 06/04/17 09:04; Admin Dose 20 MG; Start 06/02/17 at 09:00 Hydromorphone HCl (Dilaudid) 1 mg Q3H PRN IV PAIN; Start 06/04/17 at 10:30 ADRIANA SOLIS Jun 04, 2017 14:29
--- NOTE | 2017-06-04 17:34 | PN ---
Date/Time of Note Date/Time of Note DATE: 06/04/17 TIME: 17:25 Assessment/Plan Lines/Catheters IV Catheter Type (from [facility]): Saline Lock Gaitan in Place (from [facility]): No Assessment/Plan Chief Complaint/Hosp Course -End-stage renal disease: S/P LUE brachial artery exploration, fistula thrombectomy -Recommend intravenous antibiotics for now until erythema has resolved -Would recommend not to use the right upper extremity antecubital segment as the patient may require possible new creation of the fistula. -Optimize vascular status (Diet, nutrition exercise, BP control, antiplatelets). -Discussed findings, plans, and management of the patient. He understands. -Thank you for allowing us to participate in the care of your patient. Please call with any questions. Problems: Subjective 24 Hr Interval Summary no new vascular events overnight Exam/Review of Systems Vital Signs Vitals Vital Signs Date Time Temp Pulse Resp B/P Pulse Ox O2 Delivery O2 Flow Rate FiO2 06/04/17 14:02 97.6 85 20 136/82 96 06/04/17 00:00 Room Air Intake and Output 06/03/17 06/03/17 06/04/17 15:00 23:00 07:00 Intake Total 500 ml 600 ml Output Total 30 ml 320 ml Balance 470 ml 280 ml Exam Free Text/Dictation EXTREMITIES: Lower extremities- palpable femoral pulse, nonpalpable pedal pulse. Motor and sensory intact. Capillary refill 2 to 3 seconds. No surgical scars. Left upper extremity: palpable brachial pulse. Motor and sensory intact. Capillary refill 2 to 3 seconds. Previous surgical scars are well healed. Fistula with no bruit and thrill present. There is an area of erythema and swelling in the left upper arm improving, incision C/D/I Constitutional: alert, oriented, well developed Psych: no complaints Respiratory: clear to auscultation Cardiovascular: regular rate and rhythm Gastrointestinal: nl liver, spleen, non-tender, soft Results Result Diagram: 06/03/17 1630 06/03/17 1630 RAMIRO TORRES MD Jun 04, 2017 17:33
[2017-06-04 19:48] VITALS: BP 126/79; RESP 20
[2017-06-04] MEDS ORDERED: BISACODYL (EC) 5 MG TAB PO ONE (20:00)
[2017-06-05] VITALS (12 sets, daily range): BP systolic 92–142; BP diastolic 51–90; PULSE 72–81; RESP 18–20
[2017-06-05] MEDS: LEVOTHYROXINE 137 MCG TAB PO SCH (05:59)
[2017-06-05 08:29] LABS: ADD SCAN DIFF NO
[2017-06-05 08:54] LABS: BASOPHILS % 0.4 % (0.0-2.0); EOSINOPHILS # 0.2 10^3/ul (0.0-0.5); EOSINOPHILS % 2.3 % (0.0-7.0); HEMATOCRIT 30.3 % (42.0-52.0); HEMOGLOBIN 9.7 g/dl (14.0-18.0); LYMPHOCYTES # 1.5 10^3/ul (0.8-2.9); LYMPHOCYTES % 18.3 % (15.0-51.0); MEAN CORPUSCULAR HEMOGLOBIN 33.1 pg (29.0-33.0); MEAN CORPUSCULAR VOLUME 103.4 fl (82.0-101.0); MEAN PLATELET VOLUME 10.6 fl (7.4-10.4); MONOCYTE # 0.5 10^3/ul (0.3-0.9); MONOCYTES % 5.8 % (0.0-11.0); NEUTROPHIL # 6.1 10^3/ul (1.6-7.5); NEUTROPHILS % 71.9 % (39.0-77.0); PLATELET COUNT 287 10^3/UL (140-415); RED BLOOD COUNT 2.93 10^6/ul (4.70-6.10); RED CELL DISTRIBUTION WIDTH 12.6 % (11.5-14.5); WHITE BLOOD COUNT 8.4 10^3/ul (4.8-10.8)
[2017-06-05 09:06] LABS: CALCIUM 9.1 mg/dl (8.4-10.2); CREATININE 9.49 mg/dl (0.61-1.24); POTASSIUM 3.8 mmol/L (3.5-5.1)
[2017-06-05] MEDS: CHOLECALCIFEROL 2,000 UNIT CAP PO SCH (11:49)
[2017-06-05] MEDS: FAMOTIDINE 20 MG TAB PO SCH (11:49)
[2017-06-05] MEDS: CINACALCET 30 MG TAB PO SCH (11:49)
[2017-06-05] MEDS: FENOFIBRATE 145 MG TAB PO SCH (11:49)
--- NOTE | 2017-06-05 11:58 | CONS ---
Date/Time of Note Date/Time of Note DATE: 06/05/17 TIME: 11:57 Assessment/Plan Assessment/Plan Chief Complaint/Hosp Course ID PROGRESS NOTE TOTAL ABX DAY # 5 => Vanco IV after HD (started on 06/01/17) 24H INTERVAL SUMMARY * Stable, no fevers, Doing OK, chart reviewed * POD #1 -> s/p 06/04/17 LUEXT AVF revision due to thrombosis * s/p 06/02/17 Right common femoral vein tunneled hemodialysis catheter placement. BLOOD CULTURE Final BCULT GRAM BOTTLE 1 Gram positive cocci in clusters 1 of 2 bottles . seen on gram stain of the broth Organism 1 COAGULASE NEGATIVE STAPH COAG NEG Zone Size RX --------- --- * CEFAZOLIN S * CIPROFLOXACIN S * CLINDAMYCIN S * DOXYCYCLINE S * ERYTHROMYCIN S * OXACILLIN S * PENICILLIN R * RIFAMPIN S * VANCOMYCIN S * TRIMETHOPRIM/SULFAMETHOXAZOLE S PHYSICAL EXAMINATION: GENERAL: VSS, NAD, no fevers HEENT: Unremarkable, NECK: Supple, CHEST: Equal chest rise bilaterally, without dyspnea on observation HEART: Pulse RRR ABDOMEN: Soft EXTREMITIES: Warm SKIN: Warm, dry ID ASSESSMENT: 61 yo M admitted with: 1. Sepsis w/leukocytosis, Staph (CoNS) bacteremia 2. Left upper extremity cellulitis, possibly infected AV graft * POD #1 -> s/p 06/04/17 LUEXT AVF revision due to thrombosis 2. End-stage renal disease, hemodialysis dependent 3. Morbid obesity 4. s/p 06/02/17 Right common femoral vein tunneled hemodialysis catheter placement. ABX ALLERGIES: PCN CURRENT ABX: DAY # 5 => Vanco IV after HD (started on 06/01/17) ID RECOMMENDATIONS: Continue current ABX anticipate minimum 14 days total March DC on Vanco IV w/continued dose per pharmacy after HD until last day when cleared by primary . . Problems: Consultation Date/Type/Reason Admit Date/Time Jun 01, 2017 at 15:13 Initial Consult Date Type of Consultation: ID Exam/Review of Systems Vital Signs Vitals Vital Signs Date Time Temp Pulse Resp B/P Pulse Ox O2 Delivery O2 Flow Rate FiO2 06/05/17 09:20 74 18 06/05/17 08:11 98.6 142/90 95 06/04/17 00:00 Room Air Intake and Output 06/04/17 06/04/17 06/05/17 15:00 23:00 07:00 Intake Total 2120 ml 350 ml Output Total 500 ml Balance 1620 ml 350 ml Results Result Diagram: 06/05/17 0809 06/05/17 0809 Results 24 hrs Laboratory Tests Test 06/05/17 08:09 White Blood Count 8.4 # Red Blood Count 2.93 L Hemoglobin 9.7 L Hematocrit 30.3 L Mean Corpuscular Volume 103.4 H Mean Corpuscular Hemoglobin 33.1 H Mean Corpuscular Hemoglobin Concent 32.0 Red Cell Distribution Width 12.6 Platelet Count 287 Mean Platelet Volume 10.6 H Neutrophils % 71.9 Lymphocytes % 18.3 Monocytes % 5.8 Eosinophils % 2.3 Basophils % 0.4 Nucleated Red Blood Cells % 0.0 Neutrophils # 6.1 Lymphocytes # 1.5 Monocytes # 0.5 Eosinophils # 0.2 Basophils # 0.0 Nucleated Red Blood Cells # 0.0 Sodium Level 142 Potassium Level 3.8 Chloride Level 100 Carbon Dioxide Level 23 Anion Gap 23 #H Blood Urea Nitrogen 56 H Creatinine 9.49 H Glucose Level 115 Calcium Level 9.1 Medications Medications Current Medications Cholecalciferol (Vitamin D) 2,000 unit DAILY PO Last administered on 06/05/17 11:49; Admin Dose 2,000 UNIT; Start 06/02/17 at 09:00 Cinacalcet (Sensipar) 90 mg DAILY PO Last administered on 06/05/17 11:49; Admin Dose 90 MG; Start 06/02/17 at 09:00 Fenofibrate (Tricor) 145 mg DAILY PO Last administered on 06/05/17 11:49; Admin Dose 145 MG; Start 06/02/17 at 09:00 Ondansetron HCl (Zofran Inj) 4 mg Q6H PRN IV NAUSEA AND/OR VOMITING Last administered on 06/04/17 13:14; Admin Dose 4 MG; Start 06/01/17 at 17:00 Acetaminophen (Tylenol Tab) 650 mg Q6H PRN PO PAIN LEVEL 1-3 OR FEVER; Start at 17:00 Hydromorphone HCl (Dilaudid) 1 mg Q3H PRN IV PAIN; Start 06/04/17 at 10:30 Famotidine (Pepcid) 20 mg DAILY PO Last administered on 06/05/17t 11:49; Admin Dose 20 MG; Start 06/05/17 at 09:00 CARMEN SIMS NP Jun 05, 2017 11:58
--- NOTE | 2017-06-05 14:23 | PN ---
Date/Time of Note Date/Time of Note DATE: 06/05/17 TIME: 14:21 Assessment/Plan Lines/Catheters IV Catheter Type (from [facility]): Saline Lock Urinary Cath still in place: No Assessment/Plan Assessment/Plan - Left upper extremity cellulitis with possible AV graft infection, continue broad-spectrum antibiotics. Dr. Cantu is following an infection disease consultation. - AV shunt thrombosis, Dr. 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 - Hemodialysis dependent end-stage renal disease, Dr. Gonzalez is following in nephrology consultation. - Anemia of chronic disease - Hypothyroidism, continue levothyroxine - Dyslipidemia, continue fenofibrate. - Obesity Further recommendations based on clinical course. Plan of care discussed with Dr. Maldonado. Subjective 24 Hr Interval Summary Free Text/Dictation nad, feels better, sister at bed side- all qs answered.dw staff. HD today. Constitutional: improved Respiratory: no complaints Cardiovascular: no complaints Gastrointestinal: no complaints Genitourinary: bleeding Musculoskeletal: no complaints Skin: other Exam/Review of Systems Vital Signs Vitals Vital Signs Date Time Temp Pulse Resp B/P Pulse Ox O2 Delivery O2 Flow Rate FiO2 06/05/17 09:20 74 18 06/05/17 08:11 98.6 142/90 95 06/04/17 00:00 Room Air Intake and Output 06/04/17 06/04/17 06/05/17 15:00 23:00 07:00 Intake Total 2120 ml 350 ml Output Total 500 ml Balance 1620 ml 350 ml Exam Constitutional: alert, obese, oriented Psych: nl mood/affect Respiratory: clear to auscultation, normal air movement Cardiovascular: nl pulses, regular rate and rhythm Gastrointestinal: non-tender, soft Musculoskeletal: nl extremities to inspection Extremities: edema, other (LLE- AV Graft- infection. inmproving) Neurological: MACHINERY ERECTOR II-XII intact, nl mental status Skin: other Results Result Diagram: 06/05/17 0809 06/05/17 0809 Results 24 hrs Laboratory Tests Test 06/05/17 08:09 White Blood Count 8.4 # Red Blood Count 2.93 L Hemoglobin 9.7 L Hematocrit 30.3 L Mean Corpuscular Volume 103.4 H Mean Corpuscular Hemoglobin 33.1 H Mean Corpuscular Hemoglobin Concent 32.0 Red Cell Distribution Width 12.6 Platelet Count 287 Mean Platelet Volume 10.6 H Neutrophils % 71.9 Lymphocytes % 18.3 Monocytes % 5.8 Eosinophils % 2.3 Basophils % 0.4 Nucleated Red Blood Cells % 0.0 Neutrophils # 6.1 Lymphocytes # 1.5 Monocytes # 0.5 Eosinophils # 0.2 Basophils # 0.0 Nucleated Red Blood Cells # 0.0 Sodium Level 142 Potassium Level 3.8 Chloride Level 100 Carbon Dioxide Level 23 Anion Gap 23 #H Blood Urea Nitrogen 56 H Creatinine 9.49 H Glucose Level 115 Calcium Level 9.1 Medications Medications Current Medications Cholecalciferol (Vitamin D) 2,000 unit DAILY PO Last administered on 06/05/17 11:49; Admin Dose 2,000 UNIT; Start 06/02/17 at 09:00 Cinacalcet (Sensipar) 90 mg DAILY PO Last administered on 06/05/17 11:49; Admin Dose 90 MG; Start 06/02/17 at 09:00 Fenofibrate (Tricor) 145 mg DAILY PO Last administered on 06/05/17 11:49; Admin Dose 145 MG; Start 06/02/17 at 09:00 Ondansetron HCl (Zofran Inj) 4 mg Q6H PRN IV NAUSEA AND/OR VOMITING Last administered on 06/04/17 13:14; Admin Dose 4 MG; Start 06/01/17 at 17:00 Acetaminophen (Tylenol Tab) 650 mg Q6H PRN PO PAIN LEVEL 1-3 OR FEVER; Start at 17:00 Hydromorphone HCl (Dilaudid) 1 mg Q3H PRN IV PAIN; Start 06/04/17 at 10:30 Famotidine (Pepcid) 20 mg DAILY PO Last administered on 06/05/17 11:49; Admin Dose 20 MG; Start 06/05/17 at 09:00 JAYLAN TORIBIO Jun 05, 2017 14:23
[2017-06-06 02:00] VITALS: BP 120/64; RESP 20
[2017-06-06 07:48] VITALS: BP 128/70; RESP 19
[2017-06-06] MEDS: LEVOTHYROXINE 25 MCG TAB PO SCH (08:27)
[2017-06-06] MEDS: LEVOTHYROXINE 112 MCG TAB PO SCH (08:27)
[2017-06-06] MEDS: FENOFIBRATE 145 MG TAB PO SCH (08:27)
[2017-06-06] MEDS: CINACALCET 30 MG TAB PO SCH (08:27)
[2017-06-06] MEDS: CHOLECALCIFEROL 2,000 UNIT CAP PO SCH (08:27)
[2017-06-06] MEDS: FAMOTIDINE 20 MG TAB PO SCH (08:27)
--- NOTE | 2017-06-06 12:04 | PN ---
Date/Time of Note Date/Time of Note DATE: 06/06/17 TIME: 12:02 Assessment/Plan Lines/Catheters IV Catheter Type (from [facility] Permacath Urinary Cath still in place: No Assessment/Plan Assessment/Plan - Left upper extremity cellulitis with possible AV graft infection, continue broad-spectrum antibiotics. Dr. Cantu is following an infection disease consultation. - AV shunt thrombosis, Dr. 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 - Hemodialysis dependent end-stage renal disease, Dr. Gonzalez is following in nephrology consultation. - Anemia of chronic disease - Hypothyroidism, continue levothyroxine - Dyslipidemia, continue fenofibrate. - Obesity Further recommendations based on clinical course. Plan of care discussed with Dr. Maldonado. Subjective 24 Hr Interval Summary Respiratory: no complaints Cardiovascular: no complaints Gastrointestinal: no complaints Genitourinary: no complaints Musculoskeletal: no complaints Skin: erythema Exam/Review of Systems Vital Signs Vitals Vital Signs Date Time Temp Pulse Resp B/P Pulse Ox O2 Delivery O2 Flow Rate FiO2 06/06/17 07:48 97.7 81 19 128/70 97 06/04/17 00:00 Room Air Intake and Output 06/05/17 06/05/17 06/06/17 15:00 23:00 07:00 Intake Total 500 ml 960 ml 720 ml Output Total 3300 ml Balance -2800 ml 960 ml 720 ml Exam Constitutional: alert, obese, oriented, well developed Psych: nl mood/affect Respiratory: clear to auscultation, normal air movement Cardiovascular: nl pulses, regular rate and rhythm Gastrointestinal: non-tender, soft Extremities: edema (Left upper extremity AV graft infection redness and swelling improving) Skin: other Results Result Diagram: 06/05/17 0809 06/05/17 0809 Results 24 hrs Laboratory Tests Test 06/06/17 05:25 Random Vancomycin Level 22.3 Medications Medications Current Medications Cholecalciferol (Vitamin D) 2,000 unit DAILY PO Last administered on 06/06/17 08:27; Admin Dose 2,000 UNIT; Start 06/02/17 at 09:00 Cinacalcet (Sensipar) 90 mg DAILY PO Last administered on 06/06/17 08:27; Admin Dose 90 MG; Start 06/02/17 at 09:00 Fenofibrate (Tricor) 145 mg DAILY PO Last administered on 06/06/17 08:27; Admin Dose 145 MG; Start 06/02/17 at 09:00 Ondansetron HCl (Zofran Inj) 4 mg Q6H PRN IV NAUSEA AND/OR VOMITING Last administered on 06/04/17 13:14; Admin Dose 4 MG; Start 06/01/17 at 17:00 Acetaminophen (Tylenol Tab) 650 mg Q6H PRN PO PAIN LEVEL 1-3 OR FEVER; Start at 17:00 Hydromorphone HCl (Dilaudid) 1 mg Q3H PRN IV PAIN; Start 06/04/17 at 10:30 Famotidine 20 mg 20 mg DAILY PO Last administered on 06/06/17 08:27; Admin Dose 20 MG; Start 06/05/17 at 09:00 Vancomycin HCl/ Sodium Chloride (Vancocin/NS) 250 ml @ 83.333 mls/ hr Q96H IVPB ; Start 06/07/17 at 11:00 JAYLAN TORIBIO Jun 06, 2017 12:04
[2017-06-06 14:04] VITALS: BP 134/67; RESP 20
--- NOTE | 2017-06-06 15:44 | PN ---
Date/Time of Note Date/Time of Note DATE: 06/06/17 TIME: 15:42 Assessment/Plan Lines/Catheters IV Catheter Type (from [facility]): Permacath Gaitan in Place (from [facility]): No Assessment/Plan Chief Complaint/Hosp Course -End-stage renal disease: S/P LUE brachial artery exploration, fistula thrombectomy. I'm hoping we may be able to have salvaged his LUE AVF. Will use for cannulation once the erythema has resolved -Recommend intravenous antibiotics for now until erythema has resolved -Would recommend not to use the right upper extremity antecubital segment as the patient may require possible new creation of the fistula. -Optimize vascular status (Diet, nutrition exercise, BP control, antiplatelets). -Discussed findings, plans, and management of the patient. He understands. -Thank you for allowing us to participate in the care of your patient. Please call with any questions. Problems: Subjective 24 Hr Interval Summary Constitutional: flatus, improved, no complaints Exam/Review of Systems Vital Signs Vitals Vital Signs Date Time Temp Pulse Resp B/P Pulse Ox O2 Delivery O2 Flow Rate FiO2 06/06/17 14:04 97.6 73 20 134/67 97 06/04/17 00:00 Room Air Intake and Output 06/05/17 06/05/17 06/06/17 15:00 23:00 07:00 Intake Total 500 ml 960 ml 720 ml Output Total 3300 ml Balance -2800 ml 960 ml 720 ml Exam Free Text/Dictation EXTREMITIES: Left upper extremity: palpable brachial pulse. Motor and sensory intact. Capillary refill 2 to 3 seconds. Previous surgical scars are well healed. Fistula with faint bruit and thrill present. There is an area of erythema and swelling in the left upper arm - improving, incision C/D/I Results Result Diagram: 06/05/17 0809 06/05/17 0809 RAMIRO TORRES MD Jun 06, 2017 15:43
[2017-06-06] MEDS ORDERED: BISACODYL (EC) 5 MG TAB PO PRN (16:30)
[2017-06-06] MEDS: LACTULOSE 30ML CUP PO SCH (16:48)
--- NOTE | 2017-06-06 17:42 | CONS ---
Date/Time of Note Date/Time of Note DATE: 06/06/17 TIME: 17:39 Assessment/Plan Assessment/Plan Chief Complaint/Hosp Course ID PROGRESS NOTE TOTAL ABX DAY # 6 => Vanco IV after HD (started on 06/01/17) 24H INTERVAL SUMMARY * A/A/O -> no new issues, seen by vascular who recommended continue IV ABX until all erythema resolves * POD #2 -> s/p 06/04/17 LUEXT AVF revision due to thrombosis * s/p 06/02/17 Right common femoral vein tunneled hemodialysis catheter placement. BLOOD CULTURE Final Organism 1 COAGULASE NEGATIVE STAPH COAG NEG Zone Size RX --------- --- * CEFAZOLIN S * CIPROFLOXACIN S * CLINDAMYCIN S * DOXYCYCLINE S * ERYTHROMYCIN S * OXACILLIN S * PENICILLIN R * RIFAMPIN S * VANCOMYCIN S * TRIMETHOPRIM/SULFAMETHOXAZOLE S PHYSICAL EXAMINATION: GENERAL: VSS, NAD, no fevers HEENT: Unremarkable, NECK: Supple, CHEST: Equal chest rise bilaterally, without dyspnea on observation HEART: Pulse RRR ABDOMEN: Soft EXTREMITIES: Warm SKIN: Warm, dry ID ASSESSMENT: 61 yo M admitted with: 1. Sepsis w/leukocytosis, Staph (CoNS) bacteremia 2. Left upper extremity cellulitis, possibly infected AV graft * POD #2 -> s/p 06/04/17 LUEXT AVF revision due to thrombosis 2. End-stage renal disease, hemodialysis dependent 3. Morbid obesity 4. s/p 06/02/17 Right common femoral vein tunneled hemodialysis catheter placement. ABX ALLERGIES: PCN CURRENT ABX: DAY # 6 => Vanco IV after HD (started on 06/01/17) ID RECOMMENDATIONS: Continue current ABX anticipate minimum 14 days total, per vascular may need longer course until all erythema resolves May DC on Vanco IV w/continued dose per pharmacy after HD until last day when cleared by primary * PER VASCULAR NOTE QUOTING "-Would recommend not to use the right upper extremity antecubital segment as the patient may require possible new creation of the fistula." . . Problems: Consultation Date/Type/Reason Admit Date/Time Jun 01, 2017 at 15:13 Type of Consultation: ID Exam/Review of Systems Vital Signs Vitals Vital Signs Date Time Temp Pulse Resp B/P Pulse Ox O2 Delivery O2 Flow Rate FiO2 06/06/17 14:04 97.6 73 20 134/67 97 06/04/17 00:00 Room Air Intake and Output 06/05/17 06/05/17 06/06/17 15:00 23:00 07:00 Intake Total 500 ml 960 ml 720 ml Output Total 3300 ml Balance -2800 ml 960 ml 720 ml Results Result Diagram: 06/05/17 0809 06/05/17 0809 Results 24 hrs Laboratory Tests Test 06/06/17 05:25 Random Vancomycin Level 22.3 Medications Medications Current Medications Cholecalciferol (Vitamin D) 2,000 unit DAILY PO Last administered on 06/06/17 08:27; Admin Dose 2,000 UNIT; Start 06/02/17 at 09:00 Cinacalcet (Sensipar) 90 mg DAILY PO Last administered on 06/06/17 08:27; Admin Dose 90 MG; Start 06/02/17 at 09:00 Fenofibrate (Tricor) 145 mg DAILY PO Last administered on 06/06/17 08:27; Admin Dose 145 MG; Start 06/02/17 at 09:00 Ondansetron HCl (Zofran Inj) 4 mg Q6H PRN IV NAUSEA AND/OR VOMITING Last administered on 06/04/17 13:14; Admin Dose 4 MG; Start 06/01/17 at 17:00 Acetaminophen (Tylenol Tab) 650 mg Q6H PRN PO PAIN LEVEL 1-3 OR FEVER; Start at 17:00 Hydromorphone HCl (Dilaudid) 1 mg Q3H PRN IV PAIN; Start 06/04/17 at 10:30 Famotidine 20 mg 20 mg DAILY PO Last administered on 06/06/17 08:27; Admin Dose 20 MG; Start 06/05/17 at 09:00 Vancomycin HCl/ Sodium Chloride (Vancocin/NS) 250 ml @ 83.333 mls/ hr Q96H IVPB ; Start 06/07/17 at 11:00 Docusate Sodium (Colace) 100 mg BID PO ; Start 06/06/17 at 21:00 Lactulose (Enulose) 20 gm DAILY PO Last administered on 06/06/17t 16:48; Admin Dose 20 GM; Start 06/06/17 at 16:30 Bisacodyl (Dulcolax) 5 mg DAILY PRN PO CONSTIPATION; Start 06/06/17 at 16:30 CARMEN SIMS NP Jun 06, 2017 17:42
[2017-06-06 20:30] VITALS: BP 142/78; PULSE 74; RESP 18
[2017-06-06] MEDS: DOCUSATE SODIUM 100 MG CAP PO SCH (20:51)
[2017-06-07] VITALS (12 sets, daily range): BP systolic 115–159; BP diastolic 63–96; PULSE 71–84; RESP 20
[2017-06-07] MEDS: FAMOTIDINE 20 MG TAB PO SCH (08:34)
[2017-06-07] MEDS: FENOFIBRATE 145 MG TAB PO SCH (08:34)
[2017-06-07] MEDS: CINACALCET 30 MG TAB PO SCH (08:34)
[2017-06-07] MEDS: LEVOTHYROXINE 25 MCG TAB PO SCH (08:35)
[2017-06-07] MEDS: DOCUSATE SODIUM 100 MG CAP PO SCH ×2 (08:35→20:08)
[2017-06-07] MEDS: CHOLECALCIFEROL 2,000 UNIT CAP PO SCH (08:35)
[2017-06-07] MEDS: LEVOTHYROXINE 112 MCG TAB PO SCH (08:35)
[2017-06-07] MEDS: LACTULOSE 30ML CUP PO SCH (08:35)
[2017-06-07] MEDS: VANCOMYCIN 1.25 GM in SOD CHLORIDE 0.9% 250 ML IVPB SCH ×2 (10:45→16:25)
--- NOTE | 2017-06-07 13:03 | CONS ---
Date/Time of Note Date/Time of Note DATE: 06/07/17 TIME: 13:02 Assessment/Plan Assessment/Plan Chief Complaint/Hosp Course No events overnight. Patient is alert, feels good, no fevers. Microbiology: Blood culture on admission growing staph species Physical examination: Obese well-developed elderly man who is alert in no distress. Head atraumatic normocephalic. Sclerae nonicteric. Neck is supple, trachea midline. Chest rise symmetrical, breath sounds clear. Heart: S1-S2. Abdomen soft, bowel tones present. Extremities without cyanosis: Left upper extremity with erythema and swelling at AV graft site Assessment: 1. Left upper extremity cellulitis, resolving 2. End-stage renal disease, hemodialysis dependent 3. Morbid obesity 4. Right femoral Dioni catheter 5. Staph bacteremia Plan: Remains stable, left upper extremity cellulitis almost resolved, continue vancomycin until June 16, follow recommendations of vascular team Discussed with patient and staff Problems: Consultation Date/Type/Reason Admit Date/Time Jun 01, 2017 at 15:13 Type of Consultation: ID Exam/Review of Systems Vital Signs Vitals Vital Signs Date Time Temp Pulse Resp B/P Pulse Ox O2 Delivery O2 Flow Rate FiO2 06/07/17 07:37 98.0 82 20 131/63 98 06/06/17 20:30 Room Air Intake and Output 06/06/17 06/06/17 06/07/17 15:00 23:00 07:00 Intake Total 860 ml Balance 860 ml Results Result Diagram: 06/05/17 0809 06/05/17 0809 Medications Medications Current Medications Cholecalciferol (Vitamin D) 2,000 unit DAILY PO Last administered on 06/07/17 08:35; Admin Dose 2,000 UNIT; Start 06/02/17 at 09:00 Cinacalcet (Sensipar) 90 mg DAILY PO Last administered on 06/07/17 08:34; Admin Dose 90 MG; Start 06/02/17 at 09:00 Fenofibrate (Tricor) 145 mg DAILY PO Last administered on 06/07/17 08:34; Admin Dose 145 MG; Start 06/02/17 at 09:00 Ondansetron HCl (Zofran Inj) 4 mg Q6H PRN IV NAUSEA AND/OR VOMITING Last administered on 06/04/17 13:14; Admin Dose 4 MG; Start 06/01/17 at 17:00 Acetaminophen (Tylenol Tab) 650 mg Q6H PRN PO PAIN LEVEL 1-3 OR FEVER; Start at 17:00 Hydromorphone HCl (Dilaudid) 1 mg Q3H PRN IV PAIN; Start 06/04/17 at 10:30 Famotidine 20 mg 20 mg DAILY PO Last administered on 06/07/17 08:34; Admin Dose 20 MG; Start 06/05/17 at 09:00 Vancomycin HCl/ Sodium Chloride (Vancocin/NS) 250 ml @ 83.333 mls/ hr Q96H IVPB ; Start 06/07/17 at 11:00 Docusate Sodium (Colace) 100 mg BID PO Last administered on 06/07/17 08:35; Admin Dose 100 MG; Start 06/06/17 at 21:00 Lactulose (Enulose) 20 gm DAILY PO Last administered on 06/06/17 16:48; Admin Dose 20 GM; Start 06/06/17 at 16:30 Bisacodyl (Dulcolax) 5 mg DAILY PRN PO CONSTIPATION; Start 06/06/17 at 16:30 EARLE POLLACK NP Jun 07, 2017 13:03
[2017-06-07] MEDS ORDERED: HEPARIN 1000 UNITS/ML 10 ML INJ CATHETER ONE (17:00)
--- NOTE | 2017-06-07 18:17 | PN ---
Date/Time of Note Date/Time of Note DATE: 06/07/17 TIME: 18:16 Assessment/Plan VTE Prophylaxis VTE Prophylaxis Intervention: SCD's Lines/Catheters IV [facility] Type (from [facility] Dioni Cath Urinary Cath still in place: No Assessment/Plan Chief Complaint/Hosp Course Patient is undergoing hemodialysis, remains hemodynamically stable, pain is well controlled. Assessment/Plan - Left upper extremity cellulitis with possible AV graft infection, continue vancomycin until June 16 Dr. Cantu is following an infection disease consultation. - AV shunt thrombosis, status post thrombectomy by Dr. 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 - Staph bacteremia. - Hemodialysis dependent end-stage renal disease, Dr. Gonzalez is following in nephrology consultation. - Anemia of chronic disease - Hypothyroidism, continue levothyroxine - Dyslipidemia, continue fenofibrate. - Obesity Further recommendations based on clinical course. Plan of care discussed with Dr. Maldonado. Problems: Exam/Review of Systems Vital Signs Vitals Vital Signs Date Time Temp Pulse Resp B/P Pulse Ox O2 Delivery O2 Flow Rate FiO2 06/07/17 16:55 71 06/07/17 16:25 18 06/07/17 13:27 98.0 124/70 98 06/06/17 20:30 Room Air Intake and Output 06/06/17 06/06/17 06/07/17 15:00 23:00 07:00 Intake Total 860 ml Balance 860 ml Exam Constitutional: alert, oriented Head: normocephalic Neck: supple Respiratory: normal air movement Cardiovascular: nl pulses Gastrointestinal: non-tender, soft Musculoskeletal: nl extremities to inspection Extremities: normal pulses Neurological: nl mental status Skin: other (Left upper extremities erythema) Results Result Diagram: 06/05/17 0809 06/05/17 0809 Medications Medications Current Medications Cholecalciferol (Vitamin D) 2,000 unit DAILY PO Last administered on 06/07/17 08:35; Admin Dose 2,000 UNIT; Start 06/02/17 at 09:00 Cinacalcet (Sensipar) 90 mg DAILY PO Last administered on 06/07/17 08:34; Admin Dose 90 MG; Start 06/02/17 at 09:00 Fenofibrate (Tricor) 145 mg DAILY PO Last administered on 06/07/17 08:34; Admin Dose 145 MG; Start 06/02/17 at 09:00 Ondansetron HCl (Zofran Inj) 4 mg Q6H PRN IV NAUSEA AND/OR VOMITING Last administered on 06/04/17 13:14; Admin Dose 4 MG; Start 06/01/17 at 17:00 Acetaminophen (Tylenol Tab) 650 mg Q6H PRN PO PAIN LEVEL 1-3 OR FEVER; Start at 17:00 Hydromorphone HCl (Dilaudid) 1 mg Q3H PRN IV PAIN; Start 06/04/17 at 10:30 Famotidine 20 mg 20 mg DAILY PO Last administered on 06/07/17 08:34; Admin Dose 20 MG; Start 06/05/17 at 09:00 Vancomycin HCl/ Sodium Chloride (Vancocin/NS) 250 ml @ 83.333 mls/ hr Q96H IVPB Last administered on 06/07/17 16:25; Admin Dose 83.333 MLS/HR; Start at 11:00 Docusate Sodium (Colace) 100 mg BID PO Last administered on 06/07/17 08:35; Admin Dose 100 MG; Start 06/06/17 at 21:00 Lactulose (Enulose) 20 gm DAILY PO Last administered on 06/06/17 16:48; Admin Dose 20 GM; Start 06/06/17 at 16:30 Bisacodyl (Dulcolax) 5 mg DAILY PRN PO CONSTIPATION; Start 06/06/17 at 16:30 ADRIANA SOLIS Jun 07, 2017 18:16
[2017-06-08 02:09] VITALS: BP 111/69; RESP 20
--- NOTE | 2017-06-08 03:44 | OPR ---
DATE OF OPERATION: 06/03/2017 SURGEON: Joshua Patterson MD PREOPERATIVE DIAGNOSIS: End-stage renal disease and thrombosed left upper extremity AV fistula. POSTOPERATIVE DIAGNOSIS: End-stage renal disease and thrombosed left upper extremity AV fistula. ANESTHESIA: Local with sedation. ESTIMATED BLOOD LOSS: Minimal. COMPLICATIONS: None. CONTRAST: Heparin 2500 units given. INDICATIONS: This is a 61-year-old gentleman, who presented with history of end-stage renal disease, that had a left upper extremity brachiocephalic fistula creation in the past. Unfortunately, the patient has been noncompliant and has not followed up with us in many months now, and subsequently presented with malfunctioning left upper extremity AV fistula and soon after it thrombosed. The patient has undergone a right groin HD catheter placement for not to temporize his dialysis sessions, and we will plan to evaluate his left upper extremity in order to salvage his fistula. Further, the patient has significant edema and cellulitis of the left upper extremity that we had waited for their edema to improve prior to us performing a declotting of his fistula. Therefore, the risks and benefits, and alternatives of the procedure were discussed with the patient. Risks including, but not limited to, bleeding, thrombosis, embolization, myocardial infarction, , stroke, infection, device malfunction, nephrotoxicity, limb loss, nerve injury, and the patient has agreed to proceed. OPERATIVE PROCEDURE: 1. Left upper extremity brachial artery exposure. 2. Exposure of the proximal aspect of the brachiocephalic fistula. 3. Thrombectomy of the left cephalic vein, cephalic arch, axillary vein, (this was performed with 2 Eritrean, 3-Eritrean, and 4-Eritrean Collin balloon catheters). FINDINGS: Extensive clot and fistula upstream. DESCRIPTION OF PROCEDURE: The patient was brought into the operating room, table and placed in supine position. Appropriate lines ad antibiotics were given to the patient prior to incision. The left upper extremity was then shaved and prepped and draped in the usual standard sterile fashion. Timeout and appropriate site was marked and confirmed. At this point, local anesthesia was infiltrated in the region of the left upper extremity AV fistula. Skin incision was made in the super antecubital segment of the arm about 0.5 cm and his fistula was exposed in that segment. This incision was then extended in order to expose the brachial artery anastomosis site of his fistula. Once this was performed, it was identified the patient has adequate incorporation without any signs of graft infection and had been placed for him in his left forearm segment in the past. At this point, it was identified the patient does have a thrombosed [place] AV fistula. Therefore, decision was made to give the patient 2500 units of heparin and a transverse venotomy was performed. This one using a 2-Eritrean Collin catheter. The arterial side was thrombectomized and adequate clot was removed. There was a good pulsatile flow and vascular clamp was placed soon after that. Upon the and completion of that segment, we went ahead and performed a thrombectomy of the cephalic vein across the cephalic arch and into the axillary vein. An adequate amount of blood clots were removed. Following that, we went ahead and placed a 3rd Eritrean and a 4 Eritrean Collin balloon catheters and thrombectomy was again performed respectively. At this point, there was adequate venous back bleeding and we went ahead and closed our venotomy site with interrupted 6-0 Prolene sutures. The vessel clamps were removed after adequate back bleeding, forward flushing, and irrigation with solution of venotomy site. Upon the completion of that, the patient had an adequate bruit and thrill present. Therefore, hemostasis was checked and confirmed. Using a 0 Vicryl suture the dermal layer of the wound site was closed and skin lorenzo were applied. The patient was then taken to the postanesthesia care in stable condition. All instrument, sponge, needle counts and instruments were correct times 2. Dictated By: Joshua Patterson MD /deepti/aishwarya /Document#: [id number]
[2017-06-08 07:41] VITALS: BP 126/75; RESP 18
--- NOTE | 2017-06-08 07:41 | PN ---
Date/Time of Note Date/Time of Note DATE: 06/08/17 TIME: 07:31 Assessment/Plan Lines/Catheters IV Catheter Type (from Nrs): KEMAR CATHETER Gaitna in Place (from Nrs): No Assessment/Plan Chief Complaint/Hosp Course -End-stage renal disease: S/P LUE brachial artery exploration, fistula thrombectomy. I'm hoping we may be able to have salvaged his LUE AVF. Will use for cannulation once the erythema has resolved as outpt -S/P Right CFV Perm Catheter. Pt can be discharged with the catheter for HD -Recommend intravenous antibiotics for one month with HD. Please arrange for outpt -Would recommend not to use the right upper extremity antecubital segment as the patient may require possible new creation of the fistula. -Optimize vascular status (Diet, nutrition exercise, BP control, antiplatelets). -Discussed findings, plans, and management of the patient. He understands. -Thank you for allowing us to participate in the care of your patient. Please call with any questions. Problems: Subjective 24 Hr Interval Summary no new vascular events overnight Constitutional: BM, ambulates, flatus, improved, no complaints Pain Control: well controlled Exam/Review of Systems Vital Signs Vitals Vital Signs Date Time Temp Pulse Resp B/P Pulse Ox O2 Delivery O2 Flow Rate FiO2 06/08/17 02:09 98.1 91 20 111/69 97 06/06/17 20:30 Room Air Intake and Output 06/07/17 06/07/17 06/08/17 15:00 23:00 07:00 Intake Total 1470 ml Output Total 3000 ml Balance -1530 ml Exam Free Text/Dictation EXTREMITIES: Left upper extremity: palpable brachial pulse. Motor and sensory intact. Capillary refill 2 to 3 seconds. Previous surgical scars are well healed. Fistula with faint bruit and thrill present. There was an area of erythema and swelling in the left upper arm - improved, incision C/D/I Results Result Diagram: 06/05/17 0809 06/05/17 0809 RAMIRO TORRES MD Jun 08, 2017 07:41
[2017-06-08] MEDS: CINACALCET 30 MG TAB PO SCH (08:42)
[2017-06-08] MEDS: FENOFIBRATE 145 MG TAB PO SCH (08:43)
[2017-06-08] MEDS: CHOLECALCIFEROL 2,000 UNIT CAP PO SCH (08:43)
[2017-06-08] MEDS: LEVOTHYROXINE 25 MCG TAB PO SCH (08:43)
[2017-06-08] MEDS: FAMOTIDINE 20 MG TAB PO SCH (08:43)
[2017-06-08] MEDS: LEVOTHYROXINE 112 MCG TAB PO SCH (08:43)
[2017-06-08] MEDS: LACTULOSE 30ML CUP PO SCH (08:44)
[2017-06-08] MEDS: DOCUSATE SODIUM 100 MG CAP PO SCH (08:44)
[2017-06-08 13:45] VITALS: BP 128/73; PULSE 79; RESP 18
[2017-06-08] MEDS ORDERED: Vancomycin Iv Per Pharmacy XX (14:32)
--- NOTE | 2017-06-08 17:35 | CONS ---
Date/Time of Note Date/Time of Note DATE: 06/08/17 TIME: 17:34 Assessment/Plan Assessment/Plan Chief Complaint/Hosp Course No events overnight. Patient is alert, feels good, no fevers. He is being ready to be discharged home Physical examination: Obese well-developed elderly man who is alert in no distress. Head atraumatic normocephalic. Sclerae nonicteric. Neck is supple, trachea midline. Chest rise symmetrical, breath sounds clear. Heart: S1-S2. Abdomen soft, bowel tones present. Extremities without cyanosis: Left upper extremity with erythema and swelling at AV graft site Assessment: 1. Left upper extremity cellulitis, resolving 2. End-stage renal disease, hemodialysis dependent 3. Morbid obesity 4. Right femoral Dioni catheter 5. Staph bacteremia Plan: Remains stable, left upper extremity cellulitis almost resolved, continue vancomycin until June 16, follow recommendations of vascular team Discussed with patient and staff Problems: Consultation Date/Type/Reason Admit Date/Time Jun 01, 2017 at 15:13 Type of Consultation: ID Exam/Review of Systems Vital Signs Vitals Vital Signs Date Time Temp Pulse Resp B/P Pulse Ox O2 Delivery O2 Flow Rate FiO2 06/08/17 13:45 97.9 79 18 128/73 97 Room Air Intake and Output 06/07/17 06/07/17 06/08/17 15:00 23:00 07:00 Intake Total 1470 ml Output Total 3000 ml Balance -1530 ml Results Result Diagram: 06/05/17 0809 06/05/17 0809 EARLE POLLACK NP Jun 08, 2017 17:34
--- NOTE | 2017-06-08 19:11 | DS ---
Date/Time of Note Date/Time of Note DATE: 06/08/17 TIME: 19:07 Discharge Summary Admission/Discharge Info Admit Date/Time Jun 01, 2017 at 15:13 Discharge Date/Time Jun 08, 2017 at 16:00 Discharge Diagnosis - Left upper extremity cellulitis with possible AV graft infection - AV shunt thrombosis, status post thrombectomy -Right femoral hemodialysis catheter insertion - Staph bacteremia. - Hemodialysis dependent end-stage renal disease - Anemia of chronic disease - Hypothyroidism, continue levothyroxine - Dyslipidemia, continue fenofibrate. - Obesity Patient Condition: Good Hx of Present Illness The patient is 61-year-old gentleman with history of end-stage renal disease on hemodialysis 3 days a week. Patient has been on hemodialysis for last 3 years. His dialysis schedule is Wednesday and Wednesday. He presented to hemodialysis center today and was unable to be dialyzed due to malfunction of left upper extremity atrial venous shunt. Patient was referred to emergency room by his vascular surgeon Dr. Patterson. Patient underwent ultrasound of left upper extremity which revealed thrombosis of left AV shunt. Patient complains of mild stomach upset which he associates with starting new medication Auryxia. Patient denies any fever chills denies any chest pain denies any shortness of breath denies any nausea vomiting diarrhea. Patient will be admitted for further evaluation and management. Hospital Course - Left upper extremity cellulitis with possible AV graft infection, continue vancomycin until June 16 Dr. Cantu is following an infection disease consultation. Case management arrange for vancomycin by hemodialysis center until June 16. - AV shunt thrombosis, status post thrombectomy by Dr. 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 -Right femoral hemodialysis catheter placement for continuation of hemodialysis. - Staph bacteremia. - Hemodialysis dependent end-stage renal disease, Dr. Gonzalez is following in nephrology consultation. - Anemia of chronic disease - Hypothyroidism, continue levothyroxine - Dyslipidemia, continue fenofibrate. - Obesity Home Meds Active Scripts [Vancomycin Iv Per Pharmacy] 1 EA EACH No Conflict Check, 0 EA XX .PER PROTOCOL for 8 Days Prov:NIKITAINOCENCIAADRIANA 06/08/17 Reported Medications Levothyroxine Sodium* (Levoxyl*) 137 Mcg Tablet, 137 MCG PO BEFORE BREAKFAST, # 30 TAB 06/01/17 Cinacalcet* (Sensipar*) 90 Mg Tablet, 90 MG PO DAILY, TAB 06/01/17 Fenofibrate* (Fenofibrate*) 200 Mg Cap, 200 MG PO DAILY, CAP 06/01/17 Ferric Citrate (Auryxia) 210 Mg Tablet, 420 MG PO TID, TAB 06/01/17 Cholecalciferol* (Vitamin D3*) 2,000 Unit Cap, 2000 UNIT PO DAILY, CAP 10/23/15 Discontinued Reported Medications Levothyroxine Sodium* (Levothyroxine Sodium*) 100 Mcg Tablet, 100 MCG PO AC BREAKFAST, TAB 10/23/15 Pravastatin Sodium (Pravachol) 20 Mg Tablet, 20 MG PO DAILY 09/17/15 Cinacalcet* (Sensipar*) 30 Mg Tab, 30 MG PO DAILY, TAB 02/26/15 Sevelamer Hcl* (Renagel*) 800 Mg Tablet, 2400 MG PO TID, TAB 12/24/14 Follow-up Plan Follow-up with Dr. Patterson in vascular surgery in 1-2 weeks. Continue vancomycin administered with hemodialysis until June 16. Primary Care Provider ADRIANA Larkin Jun 08, 2017 19:10
[2017-06-11] MEDS ORDERED: VANCOMYCIN 1.25 GM in SOD CHLORIDE 0.9% 250 ML IVPB SCH (16:00)
== END 2017-06-08 16:00 | disposition home or self-care (01) | DRG 252 ==
LOC: E/R 13:37 → MS2 15:13
PROVIDERS: ADMIT Internal Medicine; ATTEND Internal Medicine
PROC: 06HN33Z Insertion of Infusion Device into Left Femoral Vein, Percutaneous Approach (ICD-10-PCS; 2017-06-02)
PROC: 5A1D60Z (ICD-10-PCS; 2017-06-02)
PROC: 0JHN3XZ Insertion of Tunneled Vascular Access Device into Right Lower Leg Subcutaneous Tissue and Fascia, Percutaneous Approach (ICD-10-PCS; 2017-06-02)
PROC: 05783ZZ Dilation of Left Axillary Vein, Percutaneous Approach (ICD-10-PCS; 2017-06-03)
PROC: 05C80ZZ Extirpation of Matter from Left Axillary Vein, Open Approach (ICD-10-PCS; 2017-06-03)
PROC: 057F0ZZ Dilation of Left Cephalic Vein, Open Approach (ICD-10-PCS; 2017-06-03)
PROC: 05CF0ZZ Extirpation of Matter from Left Cephalic Vein, Open Approach (ICD-10-PCS; principal; 2017-06-03 16:00)
DX: T82.868A Thrombosis due to vascular prosthetic devices, implants and grafts, initial encounter (principal); N18.6 End stage renal disease; A41.2 Sepsis due to unspecified staphylococcus; I12.0 Hypertensive chronic kidney disease with stage 5 chronic kidney disease or end stage renal disease; Z68.41 Body mass index [BMI] 40.0-44.9, adult; L03.114 Cellulitis of left upper limb; T82.7XXA Infection and inflammatory reaction due to other cardiac and vascular devices, implants and grafts, initial encounter; Z99.2 Dependence on renal dialysis; E03.9 Hypothyroidism, unspecified; Z91.19 Patient's noncompliance with other medical treatment and regimen; D63.8 Anemia in other chronic diseases classified elsewhere; E78.5 Hyperlipidemia, unspecified; E66.01 Morbid (severe) obesity due to excess calories
CPT/HCPCS: 71010; 73206; 74000; 80048; 80202; 85025; 85610; 85730; 87040; 87081; 88305; 90935; 93005; 93931; 93970; 93971; 96365; 96375; C1750; J1170; J1644; J2405; J2795; J3010; J3370; J7040; J7050; Q9967

== ENCOUNTER 2017-07-07 09:13 | Emergency (ER) | payer OTHER ==
[~2017-07-07] VITALS: Ht 175.3 cm; Wt 121.0 kg
[~2017-07-07 09:13] MED LIST changes: +CINA90TA PO; -CNC30T PO; +FENO200 PO; +FERR210T PO; -LEVO100T87 PO; +LEVO137T26 PO; -PRAV20TA PO; -SEVE800T10 PO; +Vancomycin Iv Per Pharmacy XX
[2017-07-07 09:14] VITALS: Ht 175.3 cm; Wt 121.0 kg
[2017-07-07] MEDS ORDERED: LEVO137T26 PO (10:17)
[2017-07-07] MEDS ORDERED: LIDOCAINE 1% (MDV) 20 ML INJ ONE (13:45)
[2017-07-07] MEDS ORDERED: HEPARIN 1000 UNITS/ML 10 ML INJ ONE (13:45)
--- NOTE | 2017-07-07 14:14 | ERD ---
ER Documentation Chief Complaint Date/Time DATE: 07/07/17 TIME: 14:11 Chief Complaint sent by PCP for permacath replacement HPI 62-year-old male presents with instructions to obtain permacath replacement from his vascular surgeon Dr. Paulie shabazz. Dr. Apodaca he is unable to do this in hopes that can be done by interventional radiology. The patient himself has no other complaints. He has no pain is in no distress. His last dialysis was on Wednesday. ROS All systems reviewed and are negative except as per history of present illness. Medications Home Meds Reported Medications Levothyroxine Sodium* (Levoxyl*) 137 Mcg Tablet, 135 MCG PO BEFORE BREAKFAST, # 30 TAB 07/07/17 Cinacalcet* (Sensipar*) 90 Mg Tablet, 90 MG PO DAILY, TAB 06/01/17 Fenofibrate* (Fenofibrate*) 200 Mg Cap, 200 MG PO DAILY, CAP 06/01/17 Ferric Citrate (Auryxia) 210 Mg Tablet, 420 MG PO TID, TAB 06/01/17 Cholecalciferol* (Vitamin D3*) 2,000 Unit Cap, 2000 UNIT PO DAILY, CAP 10/23/15 Discontinued Reported Medications Levothyroxine Sodium* (Levoxyl*) 137 Mcg Tablet, 137 MCG PO BEFORE BREAKFAST, # 30 TAB 06/01/17 Discontinued Scripts [Vancomycin Iv Per Pharmacy] 1 EA EACH No Conflict Check, 0 EA XX .PER PROTOCOL for 8 Days Prov:ADRIANA SOLIS 06/08/17 Allergies Allergies: Coded Allergies: Penicillins (Verified Allergy, Unknown, THROAT SWELLING, 07/07/17) PMhx/Soc History of Surgery: Yes (AV SHUNT PLACEMENT) Anesthesia Reaction: No Hx Neurological Disorder: No Hx Respiratory Disorders: No Hx Cardiac Disorders: Yes (HIGH CHOLESTEROL) Hx Psychiatric Problems: No Hx Miscellaneous Medical Probl: No Hx Alcohol Use: No Hx Substance Use: No Hx Tobacco Use: No (MARIJUANA DAILY) Smoking Status: Current every day smoker Physical Exam Vitals Vital Signs Date Time Temp Pulse Resp B/P Pulse Ox O2 Delivery O2 Flow Rate FiO2 07/07/17 11:18 71 18 150/93 100 Room Air 07/07/17 09:14 98.7 85 18 171/91 98 Physical Exam Const: [] No distress Head: Atraumatic Eyes: Normal Conjunctiva ENT: Normal External Ears, Nose and Mouth. Abd: Soft, non tender, non distended. Normal bowel sounds Skin: No petechiae or rashes Back: No midline or flank tenderness Ext: No cyanosis, bilateral 2+ pitting edema of lower extremities, right groin permacath in place with the site clean dry intact no signs of infection peer Neur: Awake and alert Psych: Normal Mood and Affect Results 24 hrs Current Medications Medications (Trade) Dose Ordered Sig/Raymond Route PRN Reason Start Time Stop Time Status Last Admin Dose Admin Lidocaine (Xylocaine 1% (Mdv) 20 ml) 20 ml STK-MED ONCE .ROUTE 07/07/17 13:45 07/07/17 13:46 DC Heparin Sodium (Porcine) (Heparin (1000 Units/ml)) 10,000 unit STK-MED ONCE .ROUTE 07/07/17 13:45 07/07/17 13:46 DC Procedures/MDM Patient presents for change of permacath. Spoke with interventional radiology spoke with Dr. Paulie shabazz. Interventional radiologist currently busy but will place the permacath when available. The patient is going to wait in the ER until that time. Per Dr. wagner instructions he will be discharged after that. He did not want any laboratories drawn. Patient is currently stable with stable vital signs. Departure Diagnosis: Primary Impression: Clotted dialysis access Condition: Stable MARY JESSICA DO Jul 07, 2017 14:13
--- NOTE | 2017-07-07 14:32 | RADRPT ---
PROCEDURE: RIGHT COMMON FEMORAL VEIN PERMA-CATH EXCHANGE CLINICAL INDICATION: Dialysis FLUOROSCOPY TIME: 0.1 minute TECHNIQUE: The procedure, its potential risks, benefits and alternatives were explained. Risks, including but n ot limited to pain, bleeding, infection, thrombosis, embolism and arrhythmia were discussed and und erstood. Following this discussion with the patient, informed consent was obtained. 1% lidocaine was used for local anesthesia. The existing PermCath in the right common femoral vein was dissected free of the surrounding tissues including cuff. An Amplatz wire was advanced through t he PermCath into the superior vena cava. The existing Perma-Cath was then removed over the wire and a new 55 cm Perma-Cath was advanced over the wire with its tip in the right atrium. Both lumens of the catheter was then flushed with saline and loaded with heparin. The cuff of the mid catheter was within 1.5 cm of the exit site in the right thigh. The catheter was sutured to the patient's skin. The patient tolerated the procedure well. COMPARISON: none FINDINGS: as above. IMPRESSION: Exchange of a right common femoral vein Perma-Cath over a wire. RPTAT: EE Physician Carmencita Date Time Electronically viewed and signed by Physician Carmencita on 07/07/2017 14:32 /
[2017-07-07 15:17] VITALS: BP 138/91; PULSE 84; RESP 18
== END 2017-07-07 15:33 | disposition home or self-care (01) ==
LOC: E/R 09:13
DX: T82.868A Thrombosis due to vascular prosthetic devices, implants and grafts, initial encounter (principal); F17.210 Nicotine dependence, cigarettes, uncomplicated; Y82.8 Other medical devices associated with adverse incidents
CPT/HCPCS: 36558; C1750; J1644; Z7502; Z7610

== ENCOUNTER 2017-07-13 14:06 | Emergency (ER) | payer OTHER ==
[~2017-07-13] VITALS: Ht 175.3 cm; Wt 118.7 kg
[~2017-07-13 14:06] MED LIST changes: -Vancomycin Iv Per Pharmacy XX
[2017-07-13 14:13] VITALS: Ht 175.3 cm; Wt 118.7 kg
--- NOTE | 2017-07-13 15:02 | ERA ---
ER Documentation Chief Complaint Date/Time DATE: 07/13/17 TIME: 15:01 Chief Complaint dialysis cath not working HPI The patient is a 62-year-old male, presenting to the ER because of nonfunctioning right groin permacatheter that was placed at [facility] 2 days ago. He had an extra dialysis yesterday. He went to dialysis today where he was sent to the ER to replace permacatheter because it did not work. He denies any symptom, denies dizziness, neck pain, chest pain, dyspnea, abdominal pain, vomiting, dysuria, diarrhea. He does not smoke nor drink, smoke marijuana Past medical history: Chronic kidney disease on hemodialysis Wednesday and Wednesday, hypothyroidism, dyslipidemia Past surgical history: Right leg hemodialysis catheter, left upper extremity AV fistula ROS All systems reviewed and are negative except as per history of present illness. Medications Home Meds Reported Medications Levothyroxine Sodium* (Levoxyl*) 137 Mcg Tablet, 135 MCG PO BEFORE BREAKFAST, # 30 TAB 07/07/17 Cinacalcet* (Sensipar*) 90 Mg Tablet, 90 MG PO DAILY, TAB 06/01/17 Fenofibrate* (Fenofibrate*) 200 Mg Cap, 200 MG PO DAILY, CAP 06/01/17 Cholecalciferol* (Vitamin D3*) 2,000 Unit Cap, 2000 UNIT PO DAILY, CAP 10/23/15 Discontinued Reported Medications Ferric Citrate (Auryxia) 210 Mg Tablet, 420 MG PO TID, TAB 06/01/17 Levothyroxine Sodium* (Levoxyl*) 137 Mcg Tablet, 137 MCG PO BEFORE BREAKFAST, # 30 TAB 06/01/17 Discontinued Scripts [Vancomycin Iv Per Pharmacy] 1 EA EACH No Conflict Check, 0 EA XX .PER PROTOCOL for 8 Days Prov:ADRIANA SOLIS 06/08/17 Allergies Allergies: Coded Allergies: Penicillins (Verified Allergy, Unknown, THROAT SWELLING, 07/13/17) PMhx/Soc History of Surgery: Yes (AV SHUNT PLACEMENT) Anesthesia Reaction: No Hx Neurological Disorder: No Hx Respiratory Disorders: No Hx Cardiac Disorders: Yes (HIGH CHOLESTEROL) Hx Psychiatric Problems: No Hx Miscellaneous Medical Probl: No Hx Alcohol Use: No Hx Substance Use: No Hx Tobacco Use: Yes (MARIJUANA DAILY) Physical Exam Vitals Vital Signs Date Time Temp Pulse Resp B/P Pulse Ox O2 Delivery O2 Flow Rate FiO2 07/13/17 14:13 98.2 85 18 112/63 99 Physical Exam Const: No acute distress. Head: Atraumatic. Eyes: Normal Conjunctiva. ENT: Normal External Ears, Nose and Mouth. Neck: Full range of motion. No meningismus. Resp: Clear to auscultation bilaterally. Cardio: Regular rate and rhythm. Abd: Soft, non distended, normal bowel sounds, non tender. Skin: No petechiae or rashes. Back: No midline or flank tenderness. Ext: Rt thigh with permacatheter Neur: Awake and alert. No focal deficit Psych: Normal Mood and Affect. Result Diagram: 07/13/17 1540 07/13/17 1540 Results 24 hrs Laboratory Tests Test 07/13/17 15:40 White Blood Count 8.910^3/ul Red Blood Count 2.8610^6/ul Hemoglobin 9.4g/dl Hematocrit 29.4% Mean Corpuscular Volume 102.8fl Mean Corpuscular Hemoglobin 32.9pg Mean Corpuscular Hemoglobin Concent 32.0g/dl Red Cell Distribution Width 13.7% Platelet Count 40185^3/UL Mean Platelet Volume 10.0fl Neutrophils % 71.5% Lymphocytes % 20.4% Monocytes % 4.9% Eosinophils % 1.5% Basophils % 0.4% Nucleated Red Blood Cells % 0.0/100WBC Neutrophils # (Manual) 610^3/ul Lymphocytes # 1.810^3/ul Monocytes # 0.410^3/ul Eosinophils # 0.110^3/ul Basophils # 0.010^3/ul Nucleated Red Blood Cells # 0.010^3/ul Sodium Level 142mmol/L Potassium Level 4.2mmol/L Chloride Level 96mmol/L Carbon Dioxide Level 23mmol/L Anion Gap 27 Blood Urea Nitrogen 59mg/dl Creatinine 8.06mg/dl Glucose Level 107mg/dl Calcium Level 9.8mg/dl Phosphorus Level 8.0mg/dl Magnesium Level 1.8mg/dl [facility] [id number] Radiology Main Line: [phone] DIAGNOSTIC IMAGING REPORT Patient: JOHANNA RAMOS : 1955 Age: 62 Sex: M MR #: [id number] DOS: 07/13/17 1507 Ordering MD: MAXI GAMBAO MD Location: E/R Room/Bed: PROCEDURE: Chest Radiograph. CLINICAL INDICATION: Chest pain TECHNIQUE: Single frontal chest radiograph. COMPARISON: Chest radiograph 06/01/2017 FINDINGS: The cardiomediastinal silhouette is within normal limits. No infiltrate or effusion is seen. The bones are intact. IMPRESSION: 1. Unremarkable chest radiograph. RPTAT: KK .Lloyd Tran MD, MD Date Time Electronically viewed and signed by .Lloyd Tran MD, on 2016 15:39 .B/ CC: MAXI GAMBOA MD MEDICAL MAKING DECISION: The patient is a 62-year-old male, presenting with acute malfunction after permacatheter. Potassium level was normal, chest x-ray does not show any fluid overload Consultation: I discussed the patient with his vascular surgeon Nancy Patterson, who recommended radiologist Dr. Carvalho to replace the catheter and discharged the patient I discussed the patient with a radiologist Dr. Carvalho, who came to the ER to evaluate patient. He recommended discharging the patient because of normal potassium and normal chest x-ray. He recommended the patient to go back to where he had it done to have it replaced Departure Diagnosis: Primary Impression: Complication of vascular access for dialysis Condition: Good Comments I discussed the findings with the patient. I advised the patient to follow-up with his pst specialist tomorrow or go back to [facility] for replacement of the permacatheter as recommended by Dr. Carvalho I l discussed the patient with his pst specialist Dr Gaming, who was made aware of my discussions with the vascular surgeon and the radiologist. MAXI GAMBOA MD Jul 13, 2017 15:02
--- NOTE | 2017-07-13 15:39 | RADRPT ---
PROCEDURE: Chest Radiograph. CLINICAL INDICATION: Chest pain TECHNIQUE: Single frontal chest radiograph. COMPARISON: Chest radiograph 06/01/2017 FINDINGS: The cardiomediastinal silhouette is within normal limits. No infiltrate or effusion is seen. Th e bones are intact. IMPRESSION: 1. Unremarkable chest radiograph. RPTAT: KK .Lloyd Tran MD, MD Date Time Electronically viewed and signed by .Lloyd Tran MD, on 07/13/2017 15:39 .B/
[2017-07-13 15:45] LABS: BASOPHILS % 0.4 % (0.0-2.0); EOSINOPHILS # 0.1 10^3/ul (0.0-0.5); EOSINOPHILS % 1.5 % (0.0-7.0); HEMATOCRIT 29.4 % (42.0-52.0); HEMOGLOBIN 9.4 g/dl (14.0-18.0); LYMPHOCYTES # 1.8 10^3/ul (0.8-2.9); LYMPHOCYTES % 20.4 % (15.0-51.0); MEAN CORPUSCULAR HEMOGLOBIN 32.9 pg (29.0-33.0); MEAN CORPUSCULAR VOLUME 102.8 fl (82.0-101.0); MONOCYTE # 0.4 10^3/ul (0.3-0.9); MONOCYTES % 4.9 % (0.0-11.0); NEUTROPHILS % 71.5 % (39.0-77.0); PLATELET COUNT 301 10^3/UL (140-415); RED BLOOD COUNT 2.86 10^6/ul (4.70-6.10); RED CELL DISTRIBUTION WIDTH 13.7 % (11.5-14.5); WHITE BLOOD COUNT 8.9 10^3/ul (4.8-10.8)
[2017-07-13 16:18] LABS: CALCIUM 9.8 mg/dl (8.4-10.2); CREATININE 8.06 mg/dl (0.61-1.24); MAGNESIUM 1.8 mg/dl (1.7-2.5); POTASSIUM 4.2 mmol/L (3.5-5.1)
== END 2017-07-13 17:18 | disposition home or self-care (01) ==
LOC: E/R 14:06
DX: T82.49XA Other complication of vascular dialysis catheter, initial encounter (principal); N18.9 Chronic kidney disease, unspecified; E03.9 Hypothyroidism, unspecified; Y82.8 Other medical devices associated with adverse incidents; Z87.891 Personal history of nicotine dependence; Z99.2 Dependence on renal dialysis
CPT/HCPCS: 71010; 80048; 83735; 84100; 85025; Z7502

== ENCOUNTER 2017-07-27 07:49 | Day surgery (SDC) | payer OTHER ==
[~2017-07-27] VITALS: Ht 175.3 cm; Wt 116.7 kg
[2017-07-27] VITALS (12 sets, daily range): BP systolic 114–145; BP diastolic 63–83; PULSE 74–84; RESP 14–31; Ht 175.3 cm; Wt 116.7 kg
[~2017-07-27 07:49] MED LIST changes: -FERR210T PO
[2017-07-27] MEDS ORDERED: LIDOCAINE 1% (STERILE-PAK) 30 ML INJ ONE (11:48)
[2017-07-27] MEDS ORDERED: GELATIN SIZE 100 SPONGE ONE (11:48)
[2017-07-27] MEDS ORDERED: THROMBIN 5000 UNIT VIAL ONE (11:48)
[2017-07-27] MEDS ORDERED: HEPARIN 1000 UNITS/ML 10 ML INJ ONE ×2 (11:49→13:26)
--- NOTE | 2017-07-27 11:50 | HPN ---
Date/Time of Note Date/Time of Note DATE: 07/27/17 TIME: 11:50 Interval H&P Admission Note Pt. seen H&P reviewed: No system changes RAMIRO TORRES MD Jul 27, 2017 11:50
--- NOTE | 2017-07-27 11:52 | PDOCDIS ---
Discharge Instructions CONDITION Patient Condition: Good HOME CARE INSTRUCTIONS: Special Diet: renal ACTIVITY: Activity Restrictions: Slowly Increase Activity Avoid heavy lifting Do not Drive Do not operate Machinery Do not operate Power Tool Avoid Heavy Housework Keep Limb Elevated FOLLOW UP/APPOINTMENTS Follow-up Plan FOLLOW UP IN 2 WEEKS WITH BRIAN KEEP ARM SLING ON FOR 8-10HRS UNTIL MOTOR/SENSORY OF THE FINGERTIPS RETURN MAY REMOVE DRESSING IN 48HRS MAY SHOWER IN 48HRS NO BATHING OR SWIMMING RAMIRO TORRES MD Jul 27, 2017 11:52
[2017-07-27] MEDS ORDERED: MIDAZOLAM 1 MG/ML 2 ML INJ ONE (11:57)
[2017-07-27] MEDS ORDERED: ROPIVACAINE 0.5 % 30 ML VIAL ONE (11:57)
[2017-07-27] MEDS ORDERED: FENTAnyl 50 MCG/ML VIAL ONE (11:57)
--- NOTE | 2017-07-27 12:00 | OPR ---
Date/Time of Note Date/Time of Note DATE: 07/27/17 TIME: 11:57 Operative Report Free Text/Dictation DATE OF OPERATION: 07/27/2017 SURGEON: Joshua Torres MD PREOPERATIVE DIAGNOSIS: End-stage renal disease POSTOPERATIVE DIAGNOSIS: Same PROCEDURE: Creation of left arm brachiobasilic arteriovenous fistula ANESTHESIA: Local & regional block COMPLICATIONS: None. ESTIMATED BLOOD LOSS: Minimal. TRANSFUSION: None SPECIMEN: None. HEPARIN: 2500units INDICATIONS: This is a 62-year-old male whom had thrombosed his already revised left brachiocephalic fistula and attempts were made to save the fistula. Decision has been made to create a new fistula for him. The risks and benefits of the procedure were discussed with the patient and not limited to , NH, pneumonia, stroke, infection, thrombosis of graft and arterial, revisions of AVF, steal and she elected to undergo surgical intervention. DESCRIPTION: The patient was placed in supine position on the operating room table. The arms were placed at 80 degrees. The normal bony prominences were padded. The anesthesia team had placed the appropriate lines and anesthesia was induced. Time-out performed and the appropriate site was marked and confirmed. The patient's left upper extremity prepped and draped in the usual standard sterile fashion. Preoperative antibiotics were administered prior to the skin incision. Skin along the medial aspect of the upper arm was infiltrated with 1% lidocaine. A 4 cm longitudinal incision was then performed along the medial aspect of the inner upper arm towards the antecubital region. The incision was deepened down through the subcutaneous tissue and fat, and the basilic vein was identified at the level of the antecubital fossa. The vein was encircled with a vessel loop and then dissected proximally and distally and its branches were isolated, ligated and divided. The overlying nerve branches was preserved. The basilic vein was then dissected free from the antecubital fossa. The vein was directed towards the brachial artery and the antecubital fossa. Vein was flushed with heparinized saline solution and checked for kinks and twists. The brachial artery was then palpated and the soft tissue overlying it was incised. The brachial artery was exposed and encircled with vessel loop. A 2 cm segment of what seemed to be the brachial artery was then circumferentially dissected. The patient was then given 2500 units of heparin intravenously. Yasargil clamps were then applied on the brachial artery and a 6 mm arteriotomy was then performed in its anterior wall. Basilic vein was spatulated to match the size of the arteriotomy. An anastomosis was then created between the end of the vein and the arteriotomy using a 6-0 Prolene running suture. At the completion of the anastomosis, the basilar vein was allowed to back bleed and the brachial artery was forward flushed and back bled. The anastomosis was irrigated with heparinized saline solution. The sutures were tied and the suture line was checked for hemostasis, which was adequate. There was an excellent thrill in the vein and the vein was readily palpable under the skin. Hemostasis was then ensured. There was evidence of an excellent pulse in the radial and ulnar arteries at the wrist. The wounds were irrigated and then closed with 3-0 Vicryl for the subcutaneous tissue. The skin was closed with skin lorenzo. The patient tolerated the procedure well and was transferred to the postanesthesia care unit in stable condition. All instruments, needles and sponge counts were correct 2 Anesthesia Type: moderate sedation Estimated Blood Loss: minimal Transfusion Required: no Specimen: none Grafts/Implants: none Complications: no Pt Condition Post Procedure: stable Disposition: PACU JOSHUA TORRES MD Jul 27, 2017 12:00 JOSHUA TORRES MD Jul 27, 2017 12:00
[2017-07-27] MEDS ORDERED: hydrALAzine 20 MG INJ IV PRN (13:00)
[2017-07-27] MEDS ORDERED: LABETALOL HCL 20MG INJ IV PRN (13:00)
[2017-07-27] MEDS ORDERED: MEPERIDINE 25 MG INJ IV PRN (13:00)
[2017-07-27] MEDS ORDERED: OXYCODONE/ACETAMINOPHEN (5/325) TAB PO PRN ×2 (13:00)
[2017-07-27] MEDS ORDERED: EPHEDrine SULFATE 50 MG/5 ML SYG IV PRN (13:00)
[2017-07-27] MEDS ORDERED: DIPHENHYDRAMINE 50 MG INJ IV PRN (13:00)
[2017-07-27] MEDS ORDERED: FENTAnyl 50 MCG/ML VIAL IV PRN ×3 (13:00)
[2017-07-27] MEDS ORDERED: MIDAZOLAM 1 MG/ML 2 ML INJ IV PRN (13:00)
[2017-07-27] MEDS ORDERED: METOCLOPRAMIDE 10 MG INJ IV PRN (13:00)
[2017-07-27] MEDS ORDERED: HYDROmorphONE (0.2 MG/ML) 10ML SYG IV PRN ×3 (13:00)
[2017-07-27] MEDS ORDERED: ONDANSETRON 4 MG INJ IV PRN (13:00)
[2017-07-27] MEDS ORDERED: CLINDAMYCIN 600 MG/D5W (PMX) 50 ML IVPB ONE (13:26)
[2017-07-27] MEDS ORDERED: PROPOFOL 20 ML ONE (13:26)
== END 2017-07-27 16:06 | disposition home or self-care (01) ==
LOC: SDS 07:49
PROVIDERS: ATTEND Student in an Organized Health Care Education/Training Program
DX: E11.22 Type 2 diabetes mellitus with diabetic chronic kidney disease (principal); N18.6 End stage renal disease; E03.9 Hypothyroidism, unspecified; E78.5 Hyperlipidemia, unspecified
CPT/HCPCS: 36821; 84132; J1644; J2250; J2795; J3010; Z7512; Z7610

== ENCOUNTER 2017-09-20 11:07 | Inpatient (IN) | payer OTHER ==
[2017-09-20] VITALS (30 sets, daily range): BP systolic 85–157; BP diastolic 52–84; PULSE 62–84; RESP 13–21; Ht 175.3 cm; Wt 117.0 kg
[~2017-09-20] VITALS: Ht 175.3 cm; Wt 117.0 kg
[~2017-09-20 11:07] MED LIST changes: +CLINDAMYCIN 900 MG/50 ML D5W IVPB IVPB ONE
[2017-09-20] MEDS ORDERED: LEVO175T38 PO (12:18)
--- NOTE | 2017-09-20 12:47 | HPN ---
Date/Time of Note Date/Time of Note DATE: 09/20/17 TIME: 12:47 Interval H&P Admission Note Pt. seen H&P reviewed: No system changes RAMIRO TORRES MD Sep 20, 2017 12:47
[2017-09-20] MEDS ORDERED: ROPIVACAINE 0.2% 20 ML VIAL ONE (14:15)
[2017-09-20] MEDS ORDERED: FENTAnyl 50 MCG/ML VIAL ONE ×2 (14:15→15:13)
[2017-09-20] MEDS ORDERED: MIDAZOLAM 1 MG/ML 2 ML INJ ONE (14:15)
--- NOTE | 2017-09-20 14:32 | PDOCDIS ---
Discharge Instructions DIAGNOSIS Discharge Diagnosis ESRD CONDITION Patient Condition: Good HOME CARE INSTRUCTIONS: Special Diet: RESUME PREOP DIET ACTIVITY: Activity Restrictions: Rest between Activity Avoid heavy lifting Do not Drive Do not operate Machinery Do not operate Power Tool Avoid Heavy Housework Bathing Restrictions: Sponge Bath FOLLOW UP/APPOINTMENTS Follow-up Plan FOLLOWUP IN ONE TO TWO WEEKS FOR WOUND CHECK MAY REMOVE THE DRESSING IN 48HOURS APPLY BETADINE PAINT DAILY ONCE DRESSING REMOVED DAILY KEEP ARM SLING ON UNTIL MOTOR/SENSORY HAS RETURNED (8-10HRS) AVOID BATHING OR SWIMMING RAMIRO TORRES MD Sep 20, 2017 14:32
[2017-09-20] MEDS ORDERED: GELATIN SIZE 100 SPONGE ONE (14:40)
[2017-09-20] MEDS ORDERED: THROMBIN 5000 UNIT VIAL ONE (14:41)
[2017-09-20] MEDS ORDERED: HEPARIN 1000 UNITS/ML 10 ML INJ ONE (14:41)
[2017-09-20] MEDS ORDERED: LIDOCAINE 1% (MPF) 30 ML INJ ONE (14:42)
[2017-09-20] MEDS ORDERED: DIPHENHYDRAMINE 50 MG INJ IV PRN (15:00)
[2017-09-20] MEDS ORDERED: OXYCODONE/ACETAMINOPHEN (5/325) TAB PO PRN ×2 (15:00)
[2017-09-20] MEDS ORDERED: ONDANSETRON 4 MG INJ IV PRN ×2 (15:00→22:00)
[2017-09-20] MEDS ORDERED: HYDROmorphONE (0.2 MG/ML) 10ML SYG IV PRN ×3 (15:00)
[2017-09-20] MEDS ORDERED: MEPERIDINE 25 MG INJ IV PRN (15:00)
[2017-09-20] MEDS ORDERED: THROMBIN(HUM PLAS)/FIBRINOG/CA 5 ML VIAL TOP ONE (15:36)
[2017-09-20] MEDS ORDERED: HYDROmorphONE 2 MG/ML SYG ONE (17:43)
--- NOTE | 2017-09-20 17:48 | SIPON ---
Date/Time of Note Date/Time of Note DATE: 09/20/17 TIME: 17:47 Operative Report Preoperative Diagnosis ESRD Postoperative Diagnosis SAME Operation/Procedure Performed BRACHIOBASILIC TRANSPOSITION Surgeon see signature line recruiting assistant NONE Anesthesia: moderate sedation, other (BLOCK) Estimated blood loss: minimal Transfusion Required none Specimen NONE Grafts/Implants none Complications none RAMIRO TORRES MD Sep 20, 2017 17:48
--- NOTE | 2017-09-20 17:48 | SIPON ---
Date/Time of Note Date/Time of Note DATE: 09/20/17 TIME: 17:47 Operative Report Preoperative Diagnosis ESRD Postoperative Diagnosis SAME Operation/Procedure Performed BRACHIOBASILIC TRANSPOSITION Surgeon see signature line client account assistant NONE Anesthesia: moderate sedation, other (BLOCK) Estimated blood loss: minimal Transfusion Required none Specimen NONE Grafts/Implants none Complications none RAMIRO TORRES MD Sep 20, 2017 17:48
--- NOTE | 2017-09-20 17:54 | OPR ---
Date/Time of Note Date/Time of Note DATE: 09/20/17 TIME: 17:49 Operative Report Procedure Date: Sep 20, 2017 Preoperative Diagnosis ESRD Postoperative Diagnosis SAME Operation/Procedure Performed LEFT ARM BRACHIOBASILIC TRANSPOSITION Surgeon see signature line Lens Generating Machine Tender NONE Anesthesia Type: moderate sedation, other (BLOCK) Estimated Blood Loss: minimal Transfusion none Specimen NONE Grafts/Implants none Complications none Pt Condition Post Procedure: stable Disposition: PACU Procedure Description DATE OF OPERATION: 09/20/2017 SURGEON: Joshua Torres MD PREOPERATIVE DIAGNOSIS: End-stage renal disease POSTOPERATIVE DIAGNOSIS: Same PROCEDURE: Left arm brachiobasilic transposition ANESTHESIA: Local & block COMPLICATIONS: None. ESTIMATED BLOOD LOSS: Minimal. TRANSFUSION: None SPECIMEN: None. HEPARIN: none INDICATIONS: This is a 62-year-old male whom had recently thrombosed his already revised left brachiocephalic fistula and attempts were made to save the fistula. However, thrombosed shortly postintervention. Decision has been made to create a new fistula for him. The risks and benefits of the procedure were discussed with the patient and not limited to , [place], pneumonia, stroke, infection, thrombosis of graft and arterial, revisions of AVF, steal and she elected to undergo surgical intervention. DESCRIPTION: The patient was placed in supine position on the operating room table. The arms were placed at 80 degrees. The normal bony prominences were padded. The anesthesia team had placed the appropriate lines and anesthesia was induced. Time-out performed and the appropriate site was marked and confirmed. The patient's left upper extremity prepped and draped in the usual standard sterile fashion. Preoperative antibiotics were administered prior to the skin incision. The skin along the medial aspect of the upper arm over the basilic vein was infiltrated with 1% lidocaine. A 20 cm longitudinal incision was then performed in the medial aspect of the arm. The incision was deepened down through the subcutaneous tissue and fat, and the brachial basilic fistula was identified at the level of the antecubital fossa. The basilic vein was encircled with a vessel loop and then dissected proximally near arterial anastomosis in the antecubital region to the anterior axillary line in the upper arm and its branches were isolated, ligated and divided. The overlying cutaneous nerve was preserved. The brachiobasilic fistula was then dissected free from the antecubital fossa. Attention was then directed to the anterior portion of the upper arm and undermining of the subcutaneous tissue was performed. This layer enabled us to lay the basilic vein more anterolateral and easy for cannulation access. Checked for hemostasis, which was adequate. There was an excellent thrill in the vein and the vein was readily palpable under the skin. Hemostasis was then ensured. There was evidence of an excellent pulse in the radial and ulnar arteries at the wrist. The wounds were irrigated and then The subcutaneous layer on the medial aspect of the arm was closed with a continuous 3-0 Vicryl suture. The dermal layer was closed with 3-0 Vicryl sutures. The skin was closed with skin lorenzo. The patient tolerated the procedure well and was transferred to the postanesthesia care unit in stable condition. All instrument , needle and sponge counts were correct 2. JOSHUA TORRES MD Sep 20, 2017 17:54
--- NOTE | 2017-09-20 19:33 | RADRPT ---
PROCEDURE: XR Chest. CLINICAL INDICATION: Shortness of breath. TECHNIQUE: Single frontal view. COMPARISON: 07/13/2017. FINDINGS: The lungs are clear. There is a new tunneled right internal jugular vein dialysis catheter with the tip in the cavoatrial junction region. The heart size is normal. There is calcification in the aorta consistent with atherosclerosis. There is no pleural effusion. There is no pneumothorax. IMPRESSION: 1. Dialysis catheter tip in the cavoatrial junction region. 2. Atherosclerosis. 3. Otherwise unremarkable chest radiograph. RPTAT: QQ .Javad Carvalho MD, MD Date Time Electronically viewed and signed by .Javad Carvalho MD, on 09/20/2017 19:32 .R/
[2017-09-20] MEDS ORDERED: BISACODYL (EC) 5 MG TAB PO PRN (22:00)
[2017-09-20] MEDS ORDERED: DOCUSATE SODIUM 100 MG CAP PO PRN (22:00)
[2017-09-20] MEDS ORDERED: NACL 0.9% 3 ML SYG IV SCH (22:00)
[2017-09-21] VITALS (23 sets, daily range): BP systolic 105–180; BP diastolic 66–93; PULSE 74–86; RESP 18–20
[2017-09-21] MEDS: PANTOPRAZOLE (EC) 40 MG TAB PO SCH (05:48)
--- NOTE | 2017-09-21 11:09 | PN ---
Date/Time of Note Date/Time of Note DATE: 09/21/17 TIME: 11:00 Assessment/Plan VTE Prophylaxis VTE Prophylaxis Intervention: LMWH Lines/Catheters [facility] Saline Lock Urinary Cath still in place: No Assessment/Plan Assessment/Plan - Left IV fistula malfunction, status post left arm brachiocephalic transposition by Dr. Patterson 09/20 - Hemodialysis dependent end-stage renal disease, Dr. Gonzalez is following in nephrology consultation - Anemia of chronic disease - Hypothyroidism, continue levothyroxine - Dyslipidemia, continue fenofibrate. - Obesity Exam/Review of Systems Vital Signs Vitals Vital Signs Date Time Temp Pulse Resp B/P Pulse Ox O2 Delivery O2 Flow Rate FiO2 09/21/17 08:00 80 09/21/17 07:20 98.0 20 114/66 96 09/21/17 01:19 2.0 09/20/17 21:00 Nasal Cannula Intake and Output 09/20/17 09/20/17 09/21/17 14:59 22:59 06:59 Intake Total 560 ml 250 ml Output Total 3010 ml Balance -2450 ml 250 ml Results Result Diagram: 09/21/1727 09/21/1727 Results 24 hrs Laboratory Tests Test 09/20/17 13:30 09/20/17 17:48 09/20/17 19:07 09/20/17 19:49 Potassium Level 4.7 Bedside Glucose 103 Blood Gas Specimen Source Blood arterial Arterial Blood Date Drawn 09/20/2017 7:28:06 PM Arterial Blood pH (Temp corrected) 7.295 *L Arterial Blood pCO2 (Temp correct) 47.8 H Arterial Blood pO2 (Temp corrected) 69.2 L Arterial Blood HCO3 22.7 Arterial Blood Base Excess -3.9 L Arterial Blood Oxygen Saturation 90.6 L Paulino Test ACCEPTAB Arterial Blood Gas Puncture Site Right Radial Arterial Blood Carboxyhemoglobin 0.3 Arterial Blood Methemoglobin 0.3 Blood Gas A-a O2 Differential 23.3 Oxyhemoglobin Percent 90.1 L Total Hemoglobin 12.2 Blood Gas Temperature 37.0 Blood Gas Modality ROOM AIR FiO2 21.0 Blood Gas Critical Value Read Back LIZETH GALLEGOS Blood Gas Notified Whom BR Blood Gas Notified Time 09/20/2017 7:32:52 PM Creatine Kinase 59 Creatine Kinase Index 1.7 Creatinine Kinase MB (Mass) 1.01 Troponin I < 0.012 Test 09/20/17 22:58 09/21/17 00:56 09/21/17 01:00 09/21/17 03:37 D-Dimer 620.95 H D-Dimer Comment Lactic Acid Level 1.5 1.4 Blood Gas Specimen Source Blood arterial Arterial Blood Date Drawn 09/21/2017 1:10:00 AM Arterial Blood pH (Temp corrected) 7.430 Arterial Blood pCO2 (Temp correct) 37.1 Arterial Blood pO2 (Temp corrected) 71.6 L Arterial Blood HCO3 24.1 Arterial Blood Base Excess 0 Arterial Blood Oxygen Saturation 93.6 L Paulino Test N/A Arterial Blood Gas Puncture Site Right Brachial Arterial Blood Carboxyhemoglobin 0.1 Arterial Blood Methemoglobin 0.2 Blood Gas A-a O2 Differential 33.7 H Oxyhemoglobin Percent 93.3 Total Hemoglobin 12.6 Blood Gas Temperature 37.0 Blood Gas Modality ROOM AIR FiO2 21.0 Blood Gas Notified Whom KM Blood Gas Notified Time 09/21/2017 1:18:00 AM Test 09/21/17 06:27 09/21/17 08:06 White Blood Count 10.2 Red Blood Count 3.26 L Hemoglobin 10.4 L Hematocrit 34.5 L Mean Corpuscular Volume 105.8 H Mean Corpuscular Hemoglobin 31.9 Mean Corpuscular Hemoglobin Concent 30.1 L Red Cell Distribution Width 13.2 Platelet Count 330 Mean Platelet Volume 10.6 H Neutrophils % 82.7 H Lymphocytes % 12.5 L Monocytes % 3.3 Eosinophils % 0.7 Basophils % 0.3 Nucleated Red Blood Cells % 0.0 Neutrophils # 8.4 H Lymphocytes # 1.3 Monocytes # 0.3 Eosinophils # 0.1 Basophils # 0.0 Nucleated Red Blood Cells # 0.0 Sodium Level 142 Potassium Level 4.3 Chloride Level 97 Carbon Dioxide Level 22 Anion Gap 27 H Blood Urea Nitrogen 66 H Creatinine 9.31 H Glucose Level 173 Hemoglobin A1c 5.9 Calcium Level 9.3 Phosphorus Level 9.1 H Total Bilirubin 0.1 L Direct Bilirubin 0.00 Indirect Bilirubin 0.1 Aspartate Amino Transf (AST/SGOT) 21 Alanine Aminotransferase (ALT/SGPT) 25 Alkaline Phosphatase 47 Creatine Kinase 46 Creatine Kinase Index 2.0 Creatinine Kinase MB (Mass) 0.92 Troponin I < 0.012 Total Protein 7.1 Albumin 4.6 Globulin 2.50 Albumin/Globulin Ratio 1.84 Magnesium Level 1.9 Triglycerides Level 378 H Cholesterol Level 267 H LDL Cholesterol, Calculated 160 HDL Cholesterol 31 Cholesterol/HDL Ratio 8.6 Thyroid Stimulating Hormone (TSH) 33.600 H Medications Medications Current Medications Ondansetron HCl (Zofran Inj) 4 mg Q6H PRN IV NAUSEA AND/OR VOMITING; Start at 22:00 Docusate Sodium (Colace) 100 mg Q12H PRN PO CONSTIPATION; Start 09/20/17 at 22 :00 Bisacodyl (Dulcolax) 5 mg DAILY PRN PO CONSTIPATION; Start 09/20/17 at 22:00 Pantoprazole (Protonix Tab) 40 mg DAILY@06 PO Last administered on 09/21/17t 05:48; Admin Dose 40 MG; Start 09/21/17 at 06:00 ADRIANA SOLIS Sep 21, 2017 11:09
--- NOTE | 2017-09-21 14:57 | RADRPT ---
Vent Rate: 79 bpm RR Interval: 0 msec DC Interval: 224 msec QRS Duration: 80 msec QT Interval: 398 msec QTC Interval: 456 msec P-R-T [place]: 51 - -31 - 76 degrees Sinus rhythm with 1st degree AV block Possible Left atrial enlargement Left axis deviation Possible Anterior infarct , age undetermined Abnormal ECG Electronically Signed By: Wilder Adrian [id number]
--- NOTE | 2017-09-21 14:57 | RADRPT ---
Vent Rate: 79 bpm RR Interval: 0 msec [place] Interval: 224 msec QRS Duration: 80 msec QT Interval: 398 msec QTC Interval: 456 msec P-R-T [place]: 51 - -31 - 76 degrees Sinus rhythm with 1st degree AV block Possible Left atrial enlargement Left axis deviation Possible Anterior infarct , age undetermined Abnormal ECG Electronically Signed By: Wilder Adrian [id number]
[2017-09-22] VITALS (7 sets, daily range): BP systolic 111–152; BP diastolic 60–80; PULSE 79–84; RESP 19–20
--- NOTE | 2017-09-22 01:43 | HP ---
DATE OF ADMISSION: 09/20/2017 HISTORY OF PRESENT ILLNESS: The patient is a 62-year-old gentleman known to me from previous admiss ion. The patient with history of end-stage renal disease on hemodialysis 3 times a week. The [facility] 's broadcast meteorologist is Dr. Gonzalez. Patient also had left upper extremity arteriovenous shunt with malfunction. That was placed a couple of years ago by Dr. Patterson. Patient was followed but with Dr. Patterson and was admitted last night for left arm brachiocephalic transposition. Patient has an extensive history of thrombosed left fistula and the decision was to attempt a new fistula. Post operatively, the patient became diaphoretic and lethargic. No fevers. The patient underwent 12-ny d EKG, which revealed normal sinus rhythm with first degree block. Patient also underwent a chest x -ray which was unremarkable. The patient was admitted for further evaluation and management to [facility] floor. PAST MEDICAL HISTORY: Positive for end-stage renal disease, dyslipidemia, obesity, hypothyroidism a nd staghorn calculi. PAST SURGICAL HISTORY: Status post left upper extremity arteriovenous fistula creation and status p ost multiple thrombectomies. FAMILY HISTORY: Noncontributory. SOCIAL HISTORY: Patient lives at home. Patient denies any tobacco use, denies any alcohol use. Pa min occasionally uses marijuana. ALLERGIES: PENICILLIN ANTIBIOTICS. HOME MEDICATIONS: Include: 1. Vitamin D. 2. Sensipar. 3. Levothyroxine. 4. Fenofibrate. REVIEW OF SYSTEMS: A 12-point review of systems is negative unless mentioned in the HPI. PHYSICAL ASSESSMENT: GENERAL: Well-developed, obese male, currently is awake, alert. VITAL SIGNS: Temperature 98.4, pulse is 77, blood pressure is 128/70, respiratory rate 20, oxygen s aturation 96% on 2 liters nasal cannula. HEENT: Head is atraumatic, normocephalic. Pupils equal, round, reactive to light and accommodation . Oral mucosa is pink and moist. NECK: Supple, no cervical lymphadenopathy, no thyromegaly. CHEST: Slightly diminished at the bases. There is no rhonchi, wheezes, rales noted. CARDIOVASCULAR: Normal S1 and S2. No murmurs, gallops, clicks, rubs noted. ABDOMEN: Protuberant, soft, nondistended, nontender. Bowel sounds present. EXTREMITIES: No edema, clubbing, cyanosis. Left upper extremity, status post surgery. LABORATORY DATA: On admission, CBC: White blood cells 10.2, hemoglobin 10.4, hematocrit 34.5, plat elets . Chemistries: Sodium is 142, potassium 4.3, chloride 97, carbon dioxide 22, anion gap 27, BUN 66, creatinine 9.31, glucose 173. Lactic acid is 1.4. Troponin is less than 0.012. ASSESSMENT AND PLAN: 1. Left arteriovenous fistula malfunction and status post left arm brachiocephalic transposition by Dr. Patterson on 09/20. 2. Rule out acute coronary syndrome. We will obtain cardiac enzymes q.6 hours x3, 12-lead EKG, adm it patient to telemetry floor. 3. Hemodialysis dependent end-stage renal disease. Patient will undergo dialysis. Dr. Lisa jacobsen s following in nephrology consultation. 4. Anemia of chronic disease. 5. Hypothyroidism. We will check TSH. Continue levothyroxine. 6. Dyslipidemia. Will continue fenofibrate. 7. Obesity. Further recommendations based on clinical course. Plan of care discussed with Dr. Jamil lu. Dictated By: ADRIANA SOLIS HAT CHECKER for ADEEL ROYAL MD SR/CLARA Conf#: [id number] DID#: [id number]
--- NOTE | 2017-09-22 01:43 | HP ---
DATE OF ADMISSION: 09/20/2017 HISTORY OF PRESENT ILLNESS: The patient is a 62-year-old gentleman known to me from previous admiss ion. The patient with history of end-stage renal disease on hemodialysis 3 times a week. [facility] pressure control supervisor is Dr. Gonzalez. Patient also had left upper extremity arteriovenous shunt with malfunction. That was placed a couple of years ago by Dr. Patterson. Patient was followed but with Dr. Patterson and was admitted last night for left arm brachiocephalic transposition. Patient has an extensive history of thrombosed left fistula and the decision was to attempt a new fistula. Post operatively, the patient became diaphoretic and lethargic. No fevers. The patient underwent 12-ny d EKG, which revealed normal sinus rhythm with first degree block. Patient also underwent a chest x -ray which was unremarkable. The patient was admitted for further evaluation and management to [facility] floor. PAST MEDICAL HISTORY: Positive for end-stage renal disease, dyslipidemia, obesity, hypothyroidism a nd staghorn calculi. PAST SURGICAL HISTORY: Status post left upper extremity arteriovenous fistula creation and status p ost multiple thrombectomies. FAMILY HISTORY: Noncontributory. SOCIAL HISTORY: Patient lives at home. Patient denies any tobacco use, denies any alcohol use. Pa min occasionally uses marijuana. ALLERGIES: PENICILLIN ANTIBIOTICS. HOME MEDICATIONS: Include: 1. Vitamin D. 2. Sensipar. 3. Levothyroxine. 4. Fenofibrate. REVIEW OF SYSTEMS: A 12-point review of systems is negative unless mentioned in the HPI. PHYSICAL ASSESSMENT: GENERAL: Well-developed, obese male, currently is awake, alert. VITAL SIGNS: Temperature 98.4, pulse is 77, blood pressure is 128/70, respiratory rate 20, oxygen s aturation 96% on 2 liters nasal cannula. HEENT: Head is atraumatic, normocephalic. Pupils equal, round, reactive to light and accommodation . Oral mucosa is pink and moist. NECK: Supple, no cervical lymphadenopathy, no thyromegaly. CHEST: Slightly diminished at the bases. There is no rhonchi, wheezes, rales noted. CARDIOVASCULAR: Normal S1 and S2. No murmurs, gallops, clicks, rubs noted. ABDOMEN: Protuberant, soft, nondistended, nontender. Bowel sounds present. EXTREMITIES: No edema, clubbing, cyanosis. Left upper extremity, status post surgery. LABORATORY DATA: On admission, CBC: White blood cells 10.2, hemoglobin 10.4, hematocrit 34.5, plat elets . Chemistries: Sodium is 142, potassium 4.3, chloride 97, carbon dioxide 22, anion gap 27, BUN 66, creatinine 9.31, glucose 173. Lactic acid is 1.4. Troponin is less than 0.012. ASSESSMENT AND PLAN: 1. Left arteriovenous fistula malfunction and status post left arm brachiocephalic transposition by Dr. Patterson on 09/20. 2. Rule out acute coronary syndrome. We will obtain cardiac enzymes q.6 hours x3, 12-lead EKG, adm it patient to telemetry floor. 3. Hemodialysis dependent end-stage renal disease. Patient will undergo dialysis. Dr. Lisa jacobsen s following in nephrology consultation. 4. Anemia of chronic disease. 5. Hypothyroidism. We will check TSH. Continue levothyroxine. 6. Dyslipidemia. Will continue fenofibrate. 7. Obesity. Further recommendations based on clinical course. Plan of care discussed with Dr. Jamil lu. Dictated By: ADRIANA SOLIS STAFFING BRANCH MANAGER for ADEEL ROYAL MD SR/CLARA Conf#: [id number] DID#: [id number]
[2017-09-22] MEDS: PANTOPRAZOLE (EC) 40 MG TAB PO SCH (06:12)
[2017-09-22] MEDS ORDERED: ACETAMINOPHEN 325 MG TAB PO PRN (06:30)
[2017-09-22] MEDS ORDERED: LEVOTHYROXINE 175 MCG TAB PO SCH (07:00)
[2017-09-22] MEDS ORDERED: CINACALCET 30 MG TAB PO SCH (09:00)
[2017-09-22] MEDS ORDERED: FENOFIBRATE 145 MG TAB PO SCH (09:00)
[2017-09-22] MEDS ORDERED: CHOLECALCIFEROL 2,000 UNIT CAP PO SCH (09:00)
--- NOTE | 2017-09-22 15:57 | PN ---
Date/Time of Note Date/Time of Note DATE: 09/22/17 TIME: 15:54 Assessment/Plan Lines/Catheters IV Catheter Type (from Nrs): Saline Lock Gaitan in Place (from Nrs): No Assessment/Plan Chief Complaint/Hosp Course -ESRD: S/P Brachiobasilic fistula transposition -Followup for wound check with APC on Wednesday -Clear from vascular surgery standpoint for discharge Problems: Subjective 24 Hr Interval Summary NO NEW VASCULAR EVENTS OVERNIGHT Exam/Review of Systems Vital Signs Vitals Vital Signs Date Time Temp Pulse Resp B/P Pulse Ox O2 Delivery O2 Flow Rate FiO2 09/22/17 12:00 84 09/22/17 11:34 98.0 20 152/66 98 09/21/17 21:12 2.0 09/20/17 21:00 Nasal Cannula Intake and Output 09/21/17 09/21/17 09/22/17 15:00 23:00 07:00 Intake Total 1100 ml 250 ml Output Total 2800 ml Balance -1700 ml 250 ml Exam Free Text/Dictation A&Ox3 CTAB S1S2 present soft NTND BS+ LUE: palpable brachial pulse, motor/sensory intact, cap refill 2-3 seconds, fistula w bruit and thrill present, dressing dry Results Result Diagram: 09/22/17 0641 09/22/17 0641 RAMIRO TORRES MD Sep 22, 2017 15:57
--- NOTE | 2017-09-22 17:41 | DS ---
Date/Time of Note Date/Time of Note DATE: 09/22/17 TIME: 17:38 Discharge Summary Admission/Discharge Info Admit Date/Time Sep 20, 2017 at 21:46 Discharge Date/Time Sep 22, 2017 at 15:52 Discharge Diagnosis ESRD Patient Condition: Stable Hx of Present Illness The patient is a 62-year-old gentleman known to me from previous admission. The patient with history of end-stage renal disease on hemodialysis 3 times a week. 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 Gonzalez. Patient also had left upper extremity arteriovenous shunt with malfunction. That was placed a couple of years ago by Dr. Patterson. Patient was followed but with Dr. Patterson and was admitted last night for left arm brachiocephalic transposition. Patient has an extensive history of thrombosed left fistula and the decision was to attempt a new fistula. Postoperatively, the patient became diaphoretic and lethargic. No fevers. The patient underwent 12-lead EKG, which revealed normal sinus rhythm with first degree block. Patient also underwent a chest x- ray which was unremarkable. The patient was admitted for further evaluation and management to telemetry floor. Hospital Course - Left IV fistula malfunction, status post left arm brachiocephalic transposition by Dr. Patterson 09/20. Followup for wound check with [facility] on Wednesday. - Hemodialysis dependent end-stage renal disease, Dr. Gonzalez is following in nephrology consultation. Status post hemodialysis. - Anemia of chronic disease - Hypothyroidism, continue levothyroxine - Dyslipidemia, continue fenofibrate. - Obesity Home Meds Reported Medications Levothyroxine Sodium* (Levoxyl*) 175 Mcg Tablet, 175 MCG PO BEFORE BREAKFAST, # 30 TAB 09/20/17 Cinacalcet* (Sensipar*) 90 Mg Tablet, 90 MG PO DAILY, TAB 06/01/17 Fenofibrate* (Fenofibrate*) 200 Mg Cap, 200 MG PO DAILY, CAP 06/01/17 Cholecalciferol* (Vitamin D3*) 2,000 Unit Cap, 2000 UNIT PO DAILY, CAP 10/23/15 Discontinued Reported Medications Levothyroxine Sodium* (Levoxyl*) 137 Mcg Tablet, 135 MCG PO BEFORE BREAKFAST, # 30 TAB 07/07/17 Follow-up Plan FOLLOWUP IN ONE TO TWO WEEKS FOR WOUND CHECK MAY REMOVE THE DRESSING IN 48HOURS APPLY BETADINE PAINT DAILY ONCE DRESSING REMOVED DAILY KEEP ARM SLING ON UNTIL MOTOR/SENSORY HAS RETURNED (8-10HRS) AVOID BATHING OR SWIMMING Follow-up in hemodialysis center for next hemodialysis, Followup for wound check with [facility] on Wednesday. Primary Care Provider Radha Myers Pending Labs Laboratory Tests Test 09/22/17 06:41 09/22/17 06:42 White Blood Count 11.110^3/ul (4.8-10.8) Red Blood Count 3.3910^6/ul (4.70-6.10) Hemoglobin 10.8g/dl (14.0-18.0) Hematocrit 35.4% (42.0-52.0) Mean Corpuscular Volume 104.4fl (82.0-101.0) Mean Corpuscular Hemoglobin 31.9pg (29.0-33.0) Mean Corpuscular Hemoglobin Concent 30.5g/dl (32.0-37.0) Red Cell Distribution Width 13.1% (11.5-14.5) Platelet Count 61177^3/UL (140-415) Mean Platelet Volume 10.6fl (7.4-10.4) Neutrophils % 79.9% (39.0-77.0) Lymphocytes % 13.0% (15.0-51.0) Monocytes % 5.5% (0.0-11.0) Eosinophils % 0.7% (0.0-7.0) Basophils % 0.3% (0.0-2.0) Nucleated Red Blood Cells % 0.0/100WBC (0.0-0.0) Neutrophils # 8.910^3/ul (1.6-7.5) Lymphocytes # 1.510^3/ul (0.8-2.9) Monocytes # 0.610^3/ul (0.3-0.9) Eosinophils # 0.110^3/ul (0.0-0.5) Basophils # 0.010^3/ul (0.0-0.1) Nucleated Red Blood Cells # 0.010^3/ul (0.0-0.0) Sodium Level 141mmol/L (135-144) Potassium Level 4.3mmol/L (3.5-5.1) Chloride Level 98mmol/L (97-110) Carbon Dioxide Level 24mmol/L (21-31) Anion Gap 23 (8-16) Blood Urea Nitrogen 55mg/dl (7-20) Creatinine 8.63mg/dl (0.61-1.24) Glucose Level 119mg/dl (70-220) Calcium Level 9.8mg/dl (8.4-10.2) Phosphorus Level 8.4mg/dl (2.5-4.9) Magnesium Level 1.8mg/dl (1.7-2.5) ADRIANA SOLIS Sep 22, 2017 17:41
== END 2017-09-22 15:52 | disposition home health service (06) | DRG 252 ==
LOC: SDS 11:07 → TEL 20:25 → OBSVTOIN 21:46
PROVIDERS: ADMIT Family Medicine; ATTEND Family Medicine
PROC: 051 Upper Veins, Bypass (ICD-10-PCS; principal; 2017-09-20 14:30)
DX: T82.510A Breakdown (mechanical) of surgically created arteriovenous fistula, initial encounter (principal); N18.6 End stage renal disease; I12.0 Hypertensive chronic kidney disease with stage 5 chronic kidney disease or end stage renal disease; Z99.2 Dependence on renal dialysis; D63.8 Anemia in other chronic diseases classified elsewhere; E03.9 Hypothyroidism, unspecified; E78.5 Hyperlipidemia, unspecified; E66.9 Obesity, unspecified; Z68.38 Body mass index [BMI] 38.0-38.9, adult
CPT/HCPCS: 36600; 71010; 80048; 80053; 80061; 82550; 82553; 82803; 82962; 83036; 83605; 83735; 84100; 84132; 84443; 84484; 85025; 85378; 87040; 90935; 93005; 99217; C9250; G0378; J1170; J1644; J2250; J2405; J2795; J3010

== ENCOUNTER 2017-12-29 10:06 | Day surgery (SDC) | END 2017-12-29 13:50 | disposition home or self-care (01) ==